=== PATIENT | female | born 1990 | race Caucasian/White ===

== ENCOUNTER 2016-04-27 20:21 | Emergency (ER) | payer SELFPAY ==
[2016-04-27 21:02] VITALS: RESP 18
--- NOTE | 2016-04-27 22:08 | ED ---
General Adult HPI - General Chief complaint: Abdominal Pain Stated complaint: lower abdominal pain/13 wks preg Time Seen by Provider: 04/27/16 21:41 Source: patient, RN notes reviewed, old records reviewed Mode of arrival: ambulatory Limitations: no limitations - History of Present Illness Initial comments: This is a 25-year-old female here for evaluation of bowel pain, abdominal cramping. Patient states she is about 13 weeks . Patient has no vaginal bleeding or vaginal symptoms, patient states she also blood type and she is O+. Patient has no dysuria, patient is reported cramping. At this time patient states that she recently did have ultrasound proven positive IUP this was in [place] she has no access to his records. Patient is a G for P1 with 2 miscarriages 1 vaginal delivery at full-term. Patient states in her prior she had no prior pain like this. No modifying factors for pain at home. No fevers, no nausea vomiting or diarrhea - Related Data Home Medications Medication Instructions Recorded Confirmed Pnv with Ca,No.72/Iron/FA 1 tab PO DAILY 04/27/16 04/27/16 [ Plus Tablet] Allergies Allergy/AdvReac Type Severity Reaction Status Date / Time No Known Allergies Allergy Verified 04/27/16 21:34 Review of Systems ROS Statement: Those systems with pertinent positive or pertinent negative responses have been documented in the HPI. ROS Other: All systems not noted in ROS Statement are negative. Past Medical History Past Medical History: Thyroid Disorder History of Any Multi-Drug Resistant Organisms: None Reported Past Surgical History: No Surgical Hx Reported Past Anesthesia/Blood Transfusion Reactions: No Reported Reaction Past Psychological History: Anxiety, Depression Smoking Status: Former smoker Past Alcohol Use History: None Reported Past Drug Use History: None Reported - Past Family History Father Family Medical History: Coronary Artery Disease (CAD) General Exam Limitations: no limitations General appearance: alert, in no apparent distress Head exam: Present: atraumatic, normocephalic, normal inspection Eye exam: Present: normal appearance, PERRL, EOMI. Absent: scleral icterus, conjunctival injection, periorbital swelling ENT exam: Present: normal exam, mucous membranes moist Neck exam: Present: normal inspection. Absent: tenderness, meningismus, lymphadenopathy Respiratory exam: Present: normal lung sounds bilaterally. Absent: respiratory distress, wheezes, rales, rhonchi, stridor Cardiovascular Exam: Present: regular rate, normal rhythm, normal heart sounds. Absent: systolic murmur, diastolic murmur, rubs, gallop, clicks GI/Abdominal exam: Present: soft, normal bowel sounds. Absent: distended, tenderness, guarding, rebound, rigid Extremities exam: Present: normal inspection, full ROM, normal capillary refill. Absent: tenderness, pedal edema, joint swelling, calf tenderness Back exam: Present: normal inspection Neurological exam: Present: alert, oriented X3, CN II-XII intact Psychiatric exam: Present: normal affect, normal mood Skin exam: Present: warm, dry, intact, normal color. Absent: rash Course Vital Signs 04/27/16 20:58 Temperature 98.6 F Pulse Rate 63 Respiratory 18 Rate Blood Pressure 109/60 O2 Sat by Pulse 99 Oximetry Medical Decision Making - Lab Data Lab Results 04/27/16 Range/Units 22:15 Urine Color Yellow Urine Appearance Clear (Clear) Urine pH 6.0 (5.0-8.0) Ur Specific [place] 1.016 (1.001-1.035) Urine Protein Negative (Negative) Urine Glucose (UA) Negative (Negative) Urine Ketones Trace H (Negative) Urine Blood Negative (Negative) Urine Nitrite Negative (Negative) Urine Bilirubin Negative (Negative) Urine Urobilinogen <2.0 (<2.0) mg/dL Ur Leukocyte Esterase Small H (Negative) Urine RBC 3 (0-5) /hpf Urine WBC 3 (0-5) /hpf Ur Squamous Epith Cells 2 (0-4) /hpf Urine Bacteria Rare H (None) /hpf Urine Mucus Rare H (None) /hpf Disposition Clinical Impression: Abdominal pain affecting Disposition: HOME SELF-CARE Condition: Good Instructions: Abdominal Pain in (ED) Referrals: None,Stated [Primary Care Provider] - 1-2 days
[2016-04-27 22:35] LABS: Appearance,Urine Clear (Clear); Bacteria,Urine Rare /hpf; Bilirubin,Urine Negative (Negative); Glucose,Urine (UA) Negative (Negative); Ketones,Urine Trace (Negative); Leukocyte Esterase,Urine Small (Negative); Mucus,Urine Rare /hpf; Nitrite,Urine Negative (Negative); Particle Count 4310; Protein,Urine Negative (Negative); RBC,Urine 3 /hpf (0-5); Specific Gravity,Urine 1.016 (1.001-1.035); Squamous Epithelial Cell,Urine 2 /hpf (0-4); UA Billing (MACRO vs. MICRO) MICRO; Urobilinogen,Urine <2.0 mg/dL (<2.0); WBC,Urine 3 /hpf (0-5)
--- NOTE | 2016-04-27 22:51 | US ---
EXAMINATION TYPE: US OB <= 14 wk fetus DATE OF EXAM: 04/27/2016 10:26 PM COMPARISON: NONE CLINICAL HISTORY: Pain. EXAM PERFORMED: Transabdominal (TA) EXAM MEASUREMENTS: GESTATIONAL AGE / DATING Physician Established: Not established Dates by LMP: (13 weeks/5 days) EDC: 10/28/2016 Dates by First Scan: No previous Dates by Current Scan for: (12 weeks/5 days) EDC: 11/04/2016 MATERNAL ANATOMY Uterus: 13.3 x 10.2 x 9.8 cm Right Ovary: 3.5 x 2.2 x 2.2 cm Left Ovary: 3.5 x 2.0 x 2.0 cm Post CDS / Adnexa: wnl Presence of free fluid: No Presence of corpus luteal cyst: No Presence of subchorionic bleed: No GESTATION / SURVEY CRL: 6.35 cm (12 weeks/5 days) Heart Rate: 155 bpm Rhythm: Normal IUP: Viable IUP Nuchal Translucency 10-14wks (normal less than 3mm): 1 mm Date of LMP: 01/22/2016- patient is unsure of this date Beta HcG (if available): Not available at time of exam TECHNOLOGIST IMPRESSION: Viable IUP with an LUIS ENRIQUE of 11/04/2016 IMPRESSION: Ultrasound gestational age is 12 weeks 5 days. I see no complicating process.
[2016-04-27 23:24] VITALS: BP 111/76; PULSE 69; TEMP 98.4
== END 2016-04-27 23:24 | disposition home or self-care (01) ==
LOC: EC 20:21
DX: O26.891 Other specified pregnancy related conditions, first trimester (principal); R10.30 Lower abdominal pain, unspecified; Z87.891 Personal history of nicotine dependence; Z79.899 Other long term (current) drug therapy; Z3A.13 13 weeks gestation of pregnancy
CPT/HCPCS: 76801; 76813; 81001; 87086; 99284

== ENCOUNTER → 2016-08-19 | Outpatient (CLI) | payer OTHER ==
[2016-08-19 16:37] LABS: CH 24.6; CHCM 31.1; HCT 32.6 % (34.0-46.0); HDW 3.56; HGB 10.6 gm/dL (11.4-16.0); Hypochromasia Marked; MCH 25.8 pg (25.0-35.0); MCHC 32.4 g/dL (31.0-37.0); MCV 79.5 fL (80.0-100.0); Mean Platelet Volume 8.8; Poikilocytosis Slight; RDW 14.8 % (11.5-15.5); WBC 9.3 k/uL (3.8-10.6)
[2016-08-19 16:40] LABS: Glucose 85 mg/dL (74-99); Non-African American GFR(MDRD) >60 (>60 ml/min/1.73 sqM)
[2016-08-19 17:12] LABS: Hepatitis B Surface Ag Index 0.05
[2016-08-20 00:59] LABS: Treponemal Ab Non-Reactive (Non-Reactive)
== END ==
LOC: LABWHC1 14:59
PROVIDERS: ATTEND Obstetrics & Gynecology
DX: O26.813 Pregnancy related exhaustion and fatigue, third trimester (principal); Z3A.00 Weeks of gestation of pregnancy not specified
CPT/HCPCS: 36415; 82565; 82947; 82950; 85027; 86762; 86780; 86850; 86900; 86901; 87340; 87390

== ENCOUNTER 2016-10-30 18:01 | Inpatient (IN) | payer OTHER ==
[2016-10-30] MEDS ORDERED: LIDOCAINE 1% (PF) 10 MG/ML (30 ML SDV) SQ PRN (23:00)
[2016-10-30] MEDS ORDERED: CARBOPROST TROMETHAMINE 250 MCG/ML 1 ML AMP IM PRN (23:00)
[2016-10-30] MEDS ORDERED: TERBUTALINE 1 MG/ML VIAL SQ PRN (23:00)
[2016-10-30] MEDS ORDERED: METHYLERGONOVINE 0.2 MG/ML 1 ML AMP IM PRN (23:00)
[2016-10-30] MEDS ORDERED: LACTATED RINGERS 1,000 ML IV SCH (23:00)
[2016-10-30] MEDS ORDERED: OXYTOCIN 10 UNIT/ML 1 ML VIAL IM PRN (23:00)
[2016-10-30] MEDS: LACTATED RINGERS 1,000 ML IV SCH (23:15)
[2016-10-30 23:23] VITALS: BMI 32.9
[2016-10-30 23:29] LABS: Anisocytosis Slight; Basophils # (A) 0.1 k/uL (0-0.2); Basophils % (A) 1 %; CH 21.6; CHCM 29.1; Eosinophils # (A) 0.1 k/uL (0-0.7); Eosinophils % (A) 1 %; HCT 32.8 % (34.0-46.0); HDW 4.01; HGB 9.8 gm/dL (11.4-16.0); Hypochromasia Marked; Luc % (Auto) 3; Lymphocytes # (A) 3.2 k/uL (1.0-4.8); Lymphocytes % (A) 34 %; MCH 22.2 pg (25.0-35.0); MCHC 29.8 g/dL (31.0-37.0); MCV 74.6 fL (80.0-100.0); Mean Platelet Volume 8.6; Microcytosis Moderate; Monocytes # (A) 0.4 k/uL (0-1.0); Monocytes % (A) 4 %; Neutrophils # (A) 5.6 k/uL (1.3-7.7); Neutrophils % (A) 58 %; Poikilocytosis Moderate; RDW 18.6 % (11.5-15.5); WBC 9.6 k/uL (3.8-10.6); WBC (Perox) 10.33
[2016-10-31] MEDS: LACTATED RINGERS 1,000 ML IV SCH (04:08)
[2016-10-31] MEDS: OXYTOCIN 20 UNITS/1000 ML NS 1,000 ML IV SCH ×2 (05:15→06:39)
[2016-10-31] MEDS ORDERED: LANOLIN CREAM 5 GM TUBE TOPICAL PRN (05:20)
[2016-10-31] MEDS ORDERED: HYDROCORTISONE 2.5% RECTAL CREAM 30 GM TUBE RECTAL PRN (05:20)
[2016-10-31] MEDS ORDERED: WITCH HAZEL 1 EACH MED..PAD TOPICAL PRN (05:20)
[2016-10-31] MEDS ORDERED: diphenhydrAMINE 50 MG/ML 1 ML VIAL IVP PRN ×2 (05:20)
[2016-10-31] MEDS ORDERED: ZOLPIDEM 5 MG TAB PO PRN (05:20)
[2016-10-31] MEDS ORDERED: SIMETHICONE 80 MG CHEWABLE PO PRN (05:20)
[2016-10-31] MEDS ORDERED: diphenhydrAMINE 50 MG CAP PO PRN (05:20)
[2016-10-31] MEDS ORDERED: BENZOCAINE/MENTHOL SPRAY 1 GM/SPRAY AEROSOL TOPICAL PRN (05:20)
[2016-10-31] MEDS ORDERED: diphenhydrAMINE 25 MG CAP PO PRN (05:20)
[2016-10-31] MEDS ORDERED: ACETAMINOPHEN TAB 325 MG TAB PO PRN (05:20)
--- NOTE | 2016-10-31 05:24 | P.HPOB ---
History of Present Illness H&P Date: 10/31/16 Chief Complaint: Intrauterine at term: Active labor Clementine is a 26-year-old at 39 weeks gestation who arrives complaining of contractions. She made cervical change during her initial hour to 2 hours of observation from 3 cm to 5 cm and is admitted for labor. Her correct contractions approximately every 3 minutes and other than the contractions she voices no complaints this time. She was late to initiate her care but otherwise did not have any significant problems with the . Her pertinent labs did include O+ blood type Rh and it was negative, rubella immune , hepatitis B surface antigen and RPR as well as groupie strep were negative. Artificial rupture membranes was performed and clear fluid is noted. On physical exam vital signs are stable and afebrile. Heart regular, lungs clear, extremities without pain. Osteopathic and unremarkable. Gravid uterus is otherwise noted and heart tones are in the 140s and reactive. Assessment intrauterine at term. Plan expect spontaneous vaginal delivery. Past Medical History Past Medical History: Thyroid Disorder History of Any Multi-Drug Resistant Organisms: None Reported Past Surgical History: No Surgical Hx Reported Past Anesthesia/Blood Transfusion Reactions: No Reported Reaction Past Psychological History: Anxiety, Depression Smoking Status: Never smoker Past Alcohol Use History: None Reported Past Drug Use History: None Reported - Past Family History Father Family Medical History: Coronary Artery Disease (CAD) Medications and Allergies Allergies Allergy/AdvReac Type Severity Reaction Status Date / Time No Known Allergies Allergy Verified 04/27/16 21:34 Exam Osteopathic Statement: *. No significant issues noted on an osteopathic structural exam other than those noted in the History and Physical/Consult. - Vital Signs Vital signs: Vital Signs Temp Pulse Resp BP Pulse Ox 10/30/16 22:41 96.7 F L 73 18 121/73 10/30/16 18:40 98.0 F 70 18 127/71 98 10/30/16 18:05 98.0 F 70 18 127/71 98 Intake and Output 10/30/16 10/30/16 10/31/16 14:59 22:59 06:59 Intake Total 1000 Output Total 100 Balance 900 Intake: IV 1000 Lactated Ringers 1,000 ml 1000 @ 125 mls/hr IV .Q8H HITESH Rx#:[id number] Output: Urine 100 Other: # Voids 1 Weight 92.533 kg Patient Weight 10/31/16 06:59 Weight 92.533 kg Results Result Diagrams: 10/30/16 23:10 Abnormal Lab Results - Last 24 Hours (Table) 10/30/16 Range/Units 23:10 Hgb 9.8 L (11.4-16.0) gm/dL Hct 32.8 L (34.0-46.0) % MCV 74.6 L (80.0-100.0) fL MCH 22.2 L (25.0-35.0) pg MCHC 29.8 L (31.0-37.0) g/dL RDW 18.6 H (11.5-15.5) % Plt Count 130 L (150-450) k/uL
--- NOTE | 2016-10-31 05:25 | P.PROBDLV ---
Vaginal Delivery Note - . Vaginal Delivery Note: Patient progressed complete and pushed with spontaneous vaginal delivery of a viable male over a first repair perineal laceration. Falling deliver the head anterior posterior shoulders were delivered gentle downward upper traction followed by the remainder the baby. Mouth nares were then bulb suctioned and baby was placed on mother's abdomen where the umbilical cord was allowed to pulsate 30 seconds prior to clamping and cutting. Once this was accomplished nursery personnel was present to assume care placenta was delivered intact. Pitocin was then added to the IV. A first-degree perineal laceration was then noted and repaired with 3-0 Vicryl. Both mother and baby are stable following delivery. scores were 8 at one and 9 at 5 minutes respectively and the weight was 7 lbs. 13 oz.
[2016-10-31] MEDS: IBUPROFEN 600 MG TAB PO PRN ×2 (08:22→16:04)
[2016-10-31] MEDS: SENNOSIDES-DOCUSATE SODIUM 1 EACH TAB PO SCH ×2 (08:36→19:12)
[2016-10-31] MEDS: Acetaminophen-Codeine 300-30mg TAB PO PRN ×2 (12:31→19:12)
[2016-11-01] MEDS: IBUPROFEN 600 MG TAB PO PRN ×2 (02:03→14:26)
[2016-11-01] MEDS: SENNOSIDES-DOCUSATE SODIUM 1 EACH TAB PO SCH ×2 (07:59→20:45)
[2016-11-01] MEDS: Acetaminophen-Codeine 300-30mg TAB PO PRN ×2 (07:59→20:44)
--- NOTE | 2016-11-01 08:00 | P.DS ---
Providers Date of admission: 10/30/16 22:36 Expected date of discharge: 11/01/16 Attending physician: Jayden Mcclelland Primary care physician: Stated None Hospital Course: Trinidad is doing very well day 1. She is involuting, voiding, and she is tolerating her diet. She voices no complaints and requests discharged home today. Vital signs are stable and afebrile. Heart regular, lungs clear, extremities without pain. Abdomen soft uterus is firm lochia is reported be light. Assessment day 1. Plan discharged home follow up with me in 6 weeks. A prescription for Motrin has been sent to her pharmacy. All other questions are answered for her at this time. Patient Condition at Discharge: Good Plan - Discharge Summary New Discharge Prescriptions: New Ibuprofen [Motrin] 600 mg PO Q6HR PRN #30 tab PRN Reason: Pain Discharge Medication List Ibuprofen [Motrin] 600 mg PO Q6HR PRN #30 tab 11/01/16 [Rx] Follow up Appointment(s)/Referral(s): Jayden Mcclelland DO [Doctor of Osteopathic Medicine] - 6 Weeks Activity/Diet/Wound Care/Special Instructions: No heavy lifting, limit stairs and driving, and pelvic rest. If any high temperatures, heavy bleeding, or severe pain call my office Discharge Disposition: HOME SELF-CARE
[2016-11-01 12:29] VITALS: RESP 16
[2016-11-02] MEDS: Acetaminophen-Codeine 300-30mg TAB PO PRN (07:27)
[2016-11-02 08:12] VITALS: BP 104/66; PULSE 81; TEMP 98.6
--- NOTE | 2016-11-02 08:17 | P.DS ---
Providers Date of admission: 10/30/16 22:36 Expected date of discharge: 11/02/16 Attending physician: Jayden Mcclelland Primary care physician: Stated None Hospital Course: Trinidad was discharged yesterday but did not go home due to baby not being she is seen and evaluated again today with no changes to her status and will be discharged home today. Patient Condition at Discharge: Good Plan - Discharge Summary New Discharge Prescriptions: New Ibuprofen [Motrin] 600 mg PO Q6HR PRN #30 tab PRN Reason: Pain Discharge Medication List Ibuprofen [Motrin] 600 mg PO Q6HR PRN #30 tab 11/01/16 [Rx] Follow up Appointment(s)/Referral(s): Jayden Mcclelland DO [Doctor of Osteopathic Medicine] - 6 Weeks Patient Instructions/Handouts: Vaginal Delivery (DC) Activity/Diet/Wound Care/Special Instructions: No heavy lifting, limit stairs and driving, and pelvic rest. If any high temperatures, heavy bleeding, or severe pain call my office Discharge Disposition: HOME SELF-CARE
[2016-11-02] MEDS: SENNOSIDES-DOCUSATE SODIUM 1 EACH TAB PO SCH (11:57)
== END 2016-11-02 11:00 | disposition home or self-care (01) | DRG 775 ==
LOC: FBPOP 18:01 → 4FBP 22:36
PROVIDERS: ADMIT Obstetrics & Gynecology; ATTEND Obstetrics & Gynecology
PROC: 10E0XZZ Delivery of Products of Conception, External Approach (ICD-10-PCS; principal; 2016-10-31)
PROC: 0HQ9XZZ Repair Perineum Skin, External Approach (ICD-10-PCS; 2016-10-31)
DX: O70.0 First degree perineal laceration during delivery (principal); Z37.0 Single live birth; Z3A.39 39 weeks gestation of pregnancy; Z86.39 Personal history of other endocrine, nutritional and metabolic disease; Z86.59 Personal history of other mental and behavioral disorders
CPT/HCPCS: 59025; 85025; 88307; 99213

== ENCOUNTER 2017-01-26 17:44 | Emergency (ER) | payer OTHER ==
--- NOTE | 2017-01-26 19:02 | ED ---
Abdominal Pain HPI - General Chief Complaint: Abdominal Pain Stated Complaint: Abdominal pain Time Seen by Provider: 01/26/17 18:39 Source: patient, RN notes reviewed, old records reviewed Mode of arrival: ambulatory Limitations: no limitations - History of Present Illness Initial Comments: Patient is a 26-year-old female presents today with one day of red red blood after having a bowel movement. Just as concerned because she's had a protrusion in her abdomen since she gave to her child approximately a year ago. They sure importance that whenever she sits forward she notices that her abdomen protrudes out word. She denies any fever chills. She denies any changes in her bowel habits. She denies any history of hemorroids. She denies vomiting, pain with bowel movement, nausea, abdominal pain. - Related Data Previous Rx's Medication Instructions Recorded Polyethylene Glycol 3350 [Miralax] 17 gm PO DAILY #255 gm 01/26/17 Allergies Allergy/AdvReac Type Severity Reaction Status Date / Time No Known Allergies Allergy Verified 01/26/17 19:07 Review of Systems ROS Statement: Those systems with pertinent positive or pertinent negative responses have been documented in the HPI. ROS Other: All systems not noted in ROS Statement are negative. Past Medical History Past Medical History: Thyroid Disorder History of Any Multi-Drug Resistant Organisms: None Reported Past Surgical History: No Surgical Hx Reported Past Anesthesia/Blood Transfusion Reactions: No Reported Reaction Past Psychological History: Anxiety, Depression Smoking Status: Current every day smoker Past Alcohol Use History: None Reported Past Drug Use History: None Reported - Past Family History Father Family Medical History: Coronary Artery Disease (CAD) General Exam - General Exam Comments Initial Comments: This is a 26 year old female, no distress Limitations: no limitations General appearance: alert, in no apparent distress Head exam: Present: atraumatic, normocephalic, normal inspection Eye exam: Present: normal appearance, PERRL, EOMI. Absent: scleral icterus, conjunctival injection, periorbital swelling ENT exam: Present: normal exam, mucous membranes moist Neck exam: Present: normal inspection. Absent: tenderness, meningismus, lymphadenopathy Respiratory exam: Present: normal lung sounds bilaterally. Absent: respiratory distress, wheezes, rales, rhonchi, stridor Cardiovascular Exam: Present: regular rate, normal rhythm, normal heart sounds. Absent: systolic murmur, diastolic murmur, rubs, gallop, clicks GI/Abdominal exam: Present: soft, normal bowel sounds, hernia (reducible ventral hernia. ). Absent: distended, tenderness, guarding, rebound, rigid Rectal exam: Present: normal inspection, normal rectal tone, hemorrhoids ( Patient has 3 large external hemorriods. ) Extremities exam: Present: normal inspection, full ROM, normal capillary refill. Absent: tenderness, pedal edema, joint swelling, calf tenderness Back exam: Present: normal inspection Neurological exam: Present: alert, oriented X3, CN II-XII intact Course Vital Signs 01/26/17 01/26/17 18:05 19:08 Temperature 98.9 F 97.5 F L Pulse Rate 74 71 Respiratory 16 18 Rate Blood Pressure 130/72 120/70 O2 Sat by Pulse 100 98 Oximetry Medical Decision Making - Medical Decision Making Patient presents with one day of bloody stool after she wiped after having a bowel movement. She also conplains of a protrusion in her abdomem when she sits forward. Patient has a reducilbe large ventral hernia that was created during her . She has had the hernia since giving . She has normal bowel sounds. Patient also has 3 large hemorroids that are the cause of her bleeding after bowel movement. Disucssed increase fiber, sitz baths. Discussed follow up with surgeon outpatiently for hernia repair if she desires. Discussed monitoring for signs of irreducible hernia. Disposition Clinical Impression: Ventral hernia, Hemorrhoids Disposition: HOME SELF-CARE Condition: Good Instructions: Hemorrhoids (ED), Ventral Hernia (ED) Additional Instructions: Patient has a follow-up with a surgeon in regards to the ventral hernia. Increase fiber intake to help with the hemorrhoids. Patient should return to the emergency department if any alarming signs or symptoms occur. Prescriptions: Polyethylene Glycol 3350 [Miralax] 17 gm PO DAILY #255 gm Referrals: None,Stated [Primary Care Provider] - 1-2 days Jessica Clarke MD [STAFF PHYSICIAN] - 1-2 days Libertad Sanchez MD [STAFF PHYSICIAN] - 1-2 days Time of Disposition: 19:00
[2017-01-26 19:08] VITALS: BP 120/70; PULSE 71; RESP 18; TEMP 97.5
== END 2017-01-26 19:08 | disposition home or self-care (01) ==
LOC: EC 17:44
DX: K43.9 Ventral hernia without obstruction or gangrene (principal); K64.9 Unspecified hemorrhoids; F17.200 Nicotine dependence, unspecified, uncomplicated
CPT/HCPCS: 99284

== ENCOUNTER 2017-09-13 17:19 | Emergency (ER) | payer OTHER ==
[2017-09-13 17:26] VITALS: TEMP 97.6
[2017-09-13] MEDS ORDERED: LORazepam 1 MG TAB PO STA (17:45)
--- NOTE | 2017-09-13 18:34 | ED ---
Chest Pain HPI - General Chief Complaint: Chest Pain Stated Complaint: Panic Attack Time Seen by Provider: 09/13/17 17:30 Source: patient Mode of arrival: EMS Limitations: no limitations - History of Present Illness Initial Comments: Before years old female has a history of anxiety she had argument with her family member that triggered the chest pain and shortness of breath now she still have a mild chest pain but it's a lot better shortness of breath is better as well he does hurt when she takes a deep breath she denies any controls or tobacco use or any history of DVT or PE. Review of system is unremarkable otherwise - Related Data Home Medications Medication Instructions Recorded Confirmed Acetaminophen Tab [Tylenol Tab] 650 mg PO Q6H PRN 09/13/17 09/13/17 Escitalopram [Lexapro] 10 mg PO DAILY 09/13/17 09/13/17 [id number] Acid 1 cap PO DAILY 09/13/17 09/13/17 [-U Capsule (formulary)] Allergies Allergy/AdvReac Type Severity Reaction Status Date / Time No Known Allergies Allergy Verified 09/13/17 19:04 Review of Systems ROS Statement: Those systems with pertinent positive or pertinent negative responses have been documented in the HPI. ROS Other: All systems not noted in ROS Statement are negative. Past Medical History Past Medical History: Thyroid Disorder Additional Past Medical History / Comment(s): panic attacks anemia History of Any Multi-Drug Resistant Organisms: None Reported Past Surgical History: No Surgical Hx Reported Past Anesthesia/Blood Transfusion Reactions: No Reported Reaction Past Psychological History: Anxiety, Depression Smoking Status: Former smoker Past Alcohol Use History: Rare Past Drug Use History: None Reported - Past Family History Father Family Medical History: Coronary Artery Disease (CAD) General Exam - General Exam Comments Initial Comments: General: The patient is awake and alert, in no distress, and does not appear acutely ill. Anxious Skin: Skin is warm and dry and no rashes or lesions are noted. Eye: Pupils are equal, round and reactive to light, extra-ocular movements are intact; there is normal conjunctiva bilaterally. Ears, nose, mouth and throat: There are moist mucous membranes and no oral lesions. Neck: The neck is supple, there is no tenderness or JVD. Cardiovascular: There is a regular rate and rhythm. No murmur, rub or gallop is appreciated. Respiratory: To auscultation bilateral, no wheezing no rhonchi no distress respiratory ahn noticed Gastrointestinal: Soft, non-distended, non-tender abdomen without masses or organomegaly noted. There is no rebound or guarding present. Bowel sounds are unremarkable. Back: There is no tenderness to palpation in the midline. There is no obvious deformity. Musculoskeletal: Normal ROM, no tenderness, There is no pedal edema. There is no calf tenderness or swelling. No cords were appreciated. Neurological: CN II-XII intact, Cranial nerves III through XII are intact. There are no obvious motor or sensory deficits. Coordination appears grossly intact. Speech is normal. Psychiatric: Cooperative, appropriate mood & affect, normal judgment. Limitations: no limitations Course Vital Signs 09/13/17 09/13/17 17:21 19:01 Temperature 97.6 F Pulse Rate 67 68 Respiratory 18 18 Rate Blood Pressure 108/56 109/63 O2 Sat by Pulse 100 98 Oximetry EKG is normal sinus ventricular rate is 60 NV interval is 122 QRS duration is 94 QT/QTc is 428/420 review of this EKG does not reveal any ST elevation or ST depression At term 1900 her labs are reviewed, CBC, d-dimer, troponin, compressive metabolic panel, EKG are unremarkable considering she is 26 and there was a specific trigger for anxiety when she had argument with her family member now she is calm chest pain has gone away and she wants to go home Disposition Clinical Impression: Chest pain, Pleuritic chest pain Disposition: HOME SELF-CARE Condition: Poor Instructions: Chest Pain (ED) Is patient prescribed a controlled substance at d/c from ED?: No Referrals: Shaji Jerome MD [Primary Care Provider] - 1-2 days Bk Laura MD [STAFF PHYSICIAN] - 1-2 days
[2017-09-13 18:46] LABS: Anisocytosis Slight; Basophils # (A) 0.1 k/uL (0-0.2); Basophils % (A) 1 %; Eosinophils # (A) 0.2 k/uL (0-0.7); Eosinophils % (A) 3 %; HCT 34.5 % (34.0-46.0); HGB 10.9 gm/dL (11.4-16.0); Hypochromasia Moderate; Lymphocytes # (A) 2.7 k/uL (1.0-4.8); Lymphocytes % (A) 38 %; MCH 23.8 pg (25.0-35.0); MCHC 31.7 g/dL (31.0-37.0); Mean Platelet Volume 7.1; Microcytosis Moderate; Monocytes # (A) 0.4 k/uL (0-1.0); Monocytes % (A) 6 %; Neutrophils # (A) 3.6 k/uL (1.3-7.7); Neutrophils % (A) 50 %; Platelet Count 189 k/uL (150-450); RBC 4.59 m/uL (3.80-5.40); RDW 17.5 % (11.5-15.5); WBC 7.2 k/uL (3.8-10.6)
--- NOTE | 2017-09-13 18:57 | XR ---
EXAMINATION TYPE: XR chest 2V DATE OF EXAM: 09/13/2017 COMPARISON: NONE HISTORY: Chest pain TECHNIQUE: Frontal and lateral views of the chest are obtained. FINDINGS: Heart and mediastinum are normal. Lungs are clear. Diaphragm is normal. Bony thorax appear s normal. IMPRESSION: Normal chest.
[2017-09-13 19:01] LABS: ALT 30 U/L (9-52); AST 23 U/L (14-36); Albumin 4.4 g/dL (3.5-5.0); Alkaline Phosphatase 60 U/L (38-126); Anion Gap 8 mmol/L; Blood Urea Nitrogen 15 mg/dL (7-17); Calcium 9.9 mg/dL (8.4-10.2); Carbon Dioxide 25 mmol/L (22-30); Chloride 106 mmol/L (98-107); Glucose 83 mg/dL (74-99); Magnesium 1.8 mg/dL (1.6-2.3); Potassium 3.9 mmol/L (3.5-5.1); Sodium 139 mmol/L (137-145); Total Bilirubin <0.1 mg/dL (0.2-1.3); Total Protein 7.4 g/dL (6.3-8.2)
[2017-09-13 19:04] LABS: Creatine Kinase 77 U/L (30-135)
[2017-09-13 19:14] LABS: D-Dimer 0.24 mg/L FEU (<0.60); Partial Thromboplastin Time 24.8 sec (22.0-30.0); Prothrombin Time 9.9 sec (9.0-12.0)
[2017-09-13 19:16] LABS: Creatine Kinase MB 0.5 ng/mL (0.0-2.4); Troponin I <0.012 ng/mL (0.000-0.034)
[2017-09-13 21:18] VITALS: BP 106/61; PULSE 66; RESP 16
== END 2017-09-13 21:17 | disposition home or self-care (01) ==
LOC: EC 17:19
DX: R07.81 Pleurodynia (principal); R06.02 Shortness of breath; F41.0 Panic disorder [episodic paroxysmal anxiety]; F32.9 Major depressive disorder, single episode, unspecified; Z87.891 Personal history of nicotine dependence; Z79.899 Other long term (current) drug therapy; Z82.49 Family history of ischemic heart disease and other diseases of the circulatory system
CPT/HCPCS: 36415; 71046; 80053; 82550; 82553; 83735; 84484; 85025; 85379; 85610; 85730; 93005; 99285

== ENCOUNTER 2017-10-07 10:29 | Emergency (ER) | payer OTHER ==
[2017-10-07 10:45] VITALS: RESP 16
[2017-10-07] MEDS ORDERED: SODIUM CHLORIDE 0.9% 1,000 ML IV STA (11:15)
[2017-10-07] MEDS ORDERED: METOCLOPRAMIDE 5 MG/ML 2 ML VIAL IVP STA (11:15)
[2017-10-07] MEDS ORDERED: diphenhydrAMINE 50 MG/ML 1 ML VIAL IVP STA (11:15)
--- NOTE | 2017-10-07 11:15 | ED ---
General Adult HPI - General Chief complaint: Headache Stated complaint: headache Time Seen by Provider: 10/07/17 10:47 Source: patient, RN notes reviewed Mode of arrival: ambulatory Limitations: no limitations - History of Present Illness Initial comments: Patient 27-year-old female presented to the emergency room today with a chief complaint of a headache that began yesterday. Patient states that she woke up in the morning with headache. Patient does admit to pain right side of the head. Patient does admit to photosensitivity. States he has felt nauseous no vomiting. Patient states not had a headache similar to this in the past. Patient denies any recent fever, chills, shortness of breath, chest pain, back pain, abdominal pain, dysuria or hematuria, constipation or diarrhea, visual changes, or any other complaints. - Related Data Home Medications Medication Instructions Recorded Confirmed Acetaminophen Tab [Tylenol Tab] 650 mg PO Q6H PRN 09/13/17 10/07/17 Escitalopram [Lexapro] 10 mg PO DAILY 09/13/17 10/07/17 [id number] Acid 1 cap PO DAILY 09/13/17 10/07/17 [-U Capsule (formulary)] Previous Rx's Medication Instructions Recorded Fluticasone Propionate [Flonase 1 - 2 spray EA NOSTRIL DAILY 5 10/07/17 Allergy Relief] Days ml Ibuprofen [Motrin] 600 mg PO Q6HR PRN #40 day 10/07/17 Allergies Allergy/AdvReac Type Severity Reaction Status Date / Time No Known Allergies Allergy Verified 10/07/17 10:45 Review of Systems ROS Statement: Those systems with pertinent positive or pertinent negative responses have been documented in the HPI. ROS Other: All systems not noted in ROS Statement are negative. Past Medical History Past Medical History: Thyroid Disorder Additional Past Medical History / Comment(s): panic attacks anemia History of Any Multi-Drug Resistant Organisms: None Reported Past Surgical History: No Surgical Hx Reported Past Anesthesia/Blood Transfusion Reactions: No Reported Reaction Past Psychological History: Anxiety, Depression Smoking Status: Former smoker Past Alcohol Use History: Rare Past Drug Use History: None Reported - Past Family History Father Family Medical History: Coronary Artery Disease (CAD) General Exam - General Exam Comments Initial Comments: General: The patient is awake and alert, in no distress, and does not appear acutely ill. Eye: Pupils are equal, round and reactive to light, extra-ocular movements are intact. No nystagmus. There is normal conjunctiva bilaterally. No signs of icterus. Ears, nose, mouth and throat: There are moist mucous membranes and no oral lesions. Neck: The neck is supple, there is no tenderness or JVD. Cardiovascular: There is a regular rate and rhythm. No murmur, rub or gallop is appreciated. Respiratory: Lungs are clear to auscultation, respirations are non-labored, breath sounds are equal. No wheezes, stridor, rales, or rhonchi. Musculoskeletal: Normal ROM, no tenderness. Strength 5/5. Sensation intact. Pulses equal bilaterally 2+. Neurological: A&O x 3. CN II-XII intact, There are no obvious motor or sensory deficits. Coordination appears grossly intact. Speech is normal. Skin: Skin is warm and dry and no rashes or lesions are noted. Psychiatric: Cooperative, appropriate mood & affect, normal judgment. Limitations: no limitations Course Vital Signs 10/07/17 10/07/17 10:43 13:45 Temperature 98.9 F Pulse Rate 70 65 Respiratory 16 16 Rate Blood Pressure 108/72 104/68 O2 Sat by Pulse 99 98 Oximetry Medical Decision Making - Medical Decision Making CT and CTA are negative for any acute abnormality other than Evidence for sinus disease. Patient is feeling better after Reglan, Benadryl in the emergency room. Patient be discharged home started on anti-inflammatories. Patient given a prescription for Flonase. - Lab Data Result diagrams: 10/07/17 11:35 10/07/17 11:35 Lab Results 10/07/17 10/07/17 10/07/17 Range/Units 11:35 11:35 11:35 WBC 7.7 (3.8-10.6) k/uL RBC 4.90 (3.80-5.40) m/uL Hgb 12.0 (11.4-16.0) gm/dL Hct 38.4 (34.0-46.0) % MCV 78.4 L (80.0-100.0) fL MCH 24.5 L (25.0-35.0) pg MCHC 31.2 (31.0-37.0) g/dL RDW 18.1 H (11.5-15.5) % Plt Count 206 (150-450) k/uL Neutrophils % 57 % Lymphocytes % 34 % Monocytes % 4 % Eosinophils % 2 % Basophils % 1 % Neutrophils # 4.4 (1.3-7.7) k/uL Lymphocytes # 2.6 (1.0-4.8) k/uL Monocytes # 0.3 (0-1.0) k/uL Eosinophils # 0.2 (0-0.7) k/uL Basophils # 0.0 (0-0.2) k/uL Hypochromasia Moderate Anisocytosis Slight Microcytosis Slight Sodium 140 (137-145) mmol/L Potassium 3.9 (3.5-5.1) mmol/L Chloride 104 (98-107) mmol/L Carbon Dioxide 27 (22-30) mmol/L Anion Gap 9 mmol/L BUN 14 (7-17) mg/dL Creatinine 0.70 (0.52-1.04) mg/dL Est GFR (CKD-EPI)AfAm >90 (>60 ml/min/1.73 sqM) Est GFR (CKD-EPI)NonAf >90 (>60 ml/min/1.73 sqM) Glucose 93 (74-99) mg/dL Calcium 9.7 (8.4-10.2) mg/dL Total Bilirubin 0.3 (0.2-1.3) mg/dL AST 28 (14-36) U/L ALT 41 (9-52) U/L Alkaline Phosphatase 67 (38-126) U/L Total Protein 8.2 (6.3-8.2) g/dL Albumin 4.5 (3.5-5.0) g/dL Urine Color Urine Appearance (Clear) Urine pH (5.0-8.0) Ur Specific [place] (1.001-1.035) Urine Protein (Negative) Urine Glucose (UA) (Negative) Urine Ketones (Negative) Urine Blood (Negative) Urine Nitrite (Negative) Urine Bilirubin (Negative) Urine Urobilinogen (<2.0) mg/dL Ur Leukocyte Esterase (Negative) Urine HCG, Qual Not Detected (Not Detectd) 10/07/17 Range/Units 11:35 WBC (3.8-10.6) k/uL RBC (3.80-5.40) m/uL Hgb (11.4-16.0) gm/dL Hct (34.0-46.0) % MCV (80.0-100.0) fL MCH (25.0-35.0) pg MCHC (31.0-37.0) g/dL RDW (11.5-15.5) % Plt Count (150-450) k/uL Neutrophils % % Lymphocytes % % Monocytes % % Eosinophils % % Basophils % % Neutrophils # (1.3-7.7) k/uL Lymphocytes # (1.0-4.8) k/uL Monocytes # (0-1.0) k/uL Eosinophils # (0-0.7) k/uL Basophils # (0-0.2) k/uL Hypochromasia Anisocytosis Microcytosis Sodium (137-145) mmol/L Potassium (3.5-5.1) mmol/L Chloride (98-107) mmol/L Carbon Dioxide (22-30) mmol/L Anion Gap mmol/L BUN (7-17) mg/dL Creatinine (0.52-1.04) mg/dL Est GFR (CKD-EPI)AfAm (>60 ml/min/1.73 sqM) Est GFR (CKD-EPI)NonAf (>60 ml/min/1.73 sqM) Glucose (74-99) mg/dL Calcium (8.4-10.2) mg/dL Total Bilirubin (0.2-1.3) mg/dL AST (14-36) U/L ALT (9-52) U/L Alkaline Phosphatase (38-126) U/L Total Protein (6.3-8.2) g/dL Albumin (3.5-5.0) g/dL Urine Color Light Yellow Urine Appearance Clear (Clear) Urine pH 6.0 (5.0-8.0) Ur Specific [place] 1.009 (1.001-1.035) Urine Protein Negative (Negative) Urine Glucose (UA) Negative (Negative) Urine Ketones Negative (Negative) Urine Blood Negative (Negative) Urine Nitrite Negative (Negative) Urine Bilirubin Negative (Negative) Urine Urobilinogen <2.0 (<2.0) mg/dL Ur Leukocyte Esterase Negative (Negative) Urine HCG, Qual (Not Detectd) Disposition Clinical Impression: Headache Disposition: HOME SELF-CARE Condition: Good Instructions: Acute Headache (ED) Additional Instructions: Please use medication as discussed. Please follow-up with family doctor in the next 2 days of symptoms have not improved. Please return to emergency room if the symptoms increase or worsen or for any other concerns. Prescriptions: Fluticasone Propionate [Flonase Allergy Relief] 1 - 2 spray EA NOSTRIL DAILY 5 Days ml Ibuprofen [Motrin] 600 mg PO Q6HR PRN #40 day PRN Reason: Pain Is patient prescribed a controlled substance at d/c from ED?: No Referrals: Shaji Jerome MD [Primary Care Provider] - 1-2 days Time of Disposition: 14:20
[2017-10-07 11:51] LABS: Anisocytosis Slight; Basophils % (A) 1 %; Eosinophils # (A) 0.2 k/uL (0-0.7); Eosinophils % (A) 2 %; HCT 38.4 % (34.0-46.0); Hypochromasia Moderate; Lymphocytes # (A) 2.6 k/uL (1.0-4.8); Lymphocytes % (A) 34 %; MCH 24.5 pg (25.0-35.0); MCHC 31.2 g/dL (31.0-37.0); MCV 78.4 fL (80.0-100.0); Mean Platelet Volume 9.3; Microcytosis Slight; Monocytes # (A) 0.3 k/uL (0-1.0); Monocytes % (A) 4 %; Neutrophils # (A) 4.4 k/uL (1.3-7.7); Neutrophils % (A) 57 %; Platelet Count 206 k/uL (150-450); RDW 18.1 % (11.5-15.5); WBC 7.7 k/uL (3.8-10.6)
[2017-10-07 12:01] LABS: ALT 41 U/L (9-52); AST 28 U/L (14-36); Albumin 4.5 g/dL (3.5-5.0); Alkaline Phosphatase 67 U/L (38-126); Anion Gap 9 mmol/L; Blood Urea Nitrogen 14 mg/dL (7-17); Calcium 9.7 mg/dL (8.4-10.2); Carbon Dioxide 27 mmol/L (22-30); Chloride 104 mmol/L (98-107); Glucose 93 mg/dL (74-99); Potassium 3.9 mmol/L (3.5-5.1); Sodium 140 mmol/L (137-145); Total Bilirubin 0.3 mg/dL (0.2-1.3); Total Protein 8.2 g/dL (6.3-8.2)
[2017-10-07 12:05] LABS: Appearance,Urine Clear (Clear); Bilirubin,Urine Negative (Negative); Blood,Urine Negative (Negative); Color,Urine Light Yellow; Glucose,Urine (UA) Negative (Negative); Ketones,Urine Negative (Negative); Leukocyte Esterase,Urine Negative (Negative); Nitrite,Urine Negative (Negative); Protein,Urine Negative (Negative); Specific Gravity,Urine 1.009 (1.001-1.035); Urobilinogen,Urine <2.0 mg/dL (<2.0)
--- NOTE | 2017-10-07 13:13 | CT ---
EXAMINATION TYPE: CT brain wo con DATE OF EXAM: 10/07/2017 COMPARISON: None HISTORY: 27-year-old female Headache TECHNIQUE: Examination was done in axial plane without intravenous contrast. Coronal and sagittal r econstructions performed. CT DLP: 1117.27 mGycm Automated exposure control for dose reduction was used. FINDINGS: There is no evidence of acute intracranial hemorrhage, acute ischemic changes, mass, mass-effect, or extra-axial fluid collection. There is no effacement of cerebral sulci or basal subarachnoid cister ns. There is no hydrocephalus. There is no midline shift. Suazo-white matter distinction is preserv ed. Moderate mucosal thickening left ethmoid air cells and moderate to severe in the frontal sinuses. Tra ce mucosal thickening right maxillary sinus. Orbits and globes are intact. Mastoid air cells well pne umatized. IMPRESSION: No acute intracranial abnormality seen. 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
--- NOTE | 2017-10-07 13:39 | CT ---
EXAMINATION TYPE: CT angio head neck DATE OF EXAM: 10/07/2017 COMPARISON: CT brain same day HISTORY: 27-year-old female with pain, Headache TECHNIQUE: Contiguous axial scanning of the head and neck performed without and with IV Contrast, pat ient injected with mL of Isovue 370. Coronal/sagittal MIP reconstructions performed. CT DLP: 662.99 mGycm Automated exposure control for dose reduction was used. FINDINGS: Head: No significant stenosis, or arterial occlusion, or aneurysmal changes seen. NECK: No significant stenosis of the common or internal carotid arteries. Vertebral arteries are codominant and patent. There is conventional arch vessel branching anatomy. Normal course and contour of the ne ck arterial vasculature. IMPRESSION: UNREMARKABLE CT ANGIOGRAPHY OF THE HEAD AND NECK.
[2017-10-07 13:46] VITALS: BP 104/68; PULSE 65
[2017-10-07 14:34] VITALS: TEMP 98
== END 2017-10-07 14:33 | disposition home or self-care (01) ==
LOC: EC 10:29
DX: R51 Headache (principal); R11.0 Nausea; F41.9 Anxiety disorder, unspecified; F32.9 Major depressive disorder, single episode, unspecified; Z87.891 Personal history of nicotine dependence
CPT/HCPCS: 36415; 80053; 85025; 81003; 81025; 70496; 70450; 70498; 99284; 96374; 96375; 96361 ×2; J1200; J2765; Q9967

== ENCOUNTER 2017-11-06 15:55 | Emergency (ER) | payer OTHER ==
[2017-11-06 16:17] VITALS: RESP 18
[2017-11-06] MEDS ORDERED: LORazepam 1 MG TAB PO STA (16:57)
--- NOTE | 2017-11-06 17:00 | ED ---
General Adult HPI - General Chief complaint: Anxiety Stated complaint: panic attack Time Seen by Provider: 11/06/17 16:45 Source: patient, RN notes reviewed Mode of arrival: wheelchair Limitations: no limitations - History of Present Illness Initial comments: Patient is a pleasant 27-year-old female presenting to the emergency department with anxiety. Patient states she is felt anxious on and off throughout the day. Patient reportedly was recently discontinued from her doctor. Patient did not find a new doctor yet and has run out of her Lexapro. Last dose was yesterday. Patient denies any suicidal thoughts. Patient is vague with her anxious complaints without other specific complaints. - Related Data Home Medications Medication Instructions Recorded Confirmed Acetaminophen Tab [Tylenol Tab] 650 mg PO Q6H PRN 09/13/17 11/06/17 Escitalopram [Lexapro] 10 mg PO DAILY 09/13/17 11/06/17 Melatonin 4 mg PO HS 11/06/17 11/06/17 Previous Rx's Medication Instructions Recorded Escitalopram [Lexapro] 20 mg PO DAILY #7 tablet 11/06/17 Allergies Allergy/AdvReac Type Severity Reaction Status Date / Time No Known Allergies Allergy Verified 11/06/17 16:42 Review of Systems ROS Statement: Those systems with pertinent positive or pertinent negative responses have been documented in the HPI. ROS Other: All systems not noted in ROS Statement are negative. Constitutional: Denies: fever Eyes: Denies: eye pain ENT: Denies: ear pain Respiratory: Denies: cough Cardiovascular: Denies: chest pain Endocrine: Denies: fatigue Gastrointestinal: Denies: abdominal pain Genitourinary: Denies: dysuria Musculoskeletal: Denies: back pain Skin: Denies: rash Neurological: Denies: confusion Psychiatric: Reports: anxiety. Denies: suicidal thoughts Past Medical History Past Medical History: Thyroid Disorder Additional Past Medical History / Comment(s): panic attacks anemia History of Any Multi-Drug Resistant Organisms: None Reported Past Surgical History: No Surgical Hx Reported Past Anesthesia/Blood Transfusion Reactions: No Reported Reaction Past Psychological History: Anxiety, Depression Smoking Status: Former smoker Past Alcohol Use History: Rare Past Drug Use History: None Reported - Past Family History Father Family Medical History: Coronary Artery Disease (CAD) General Exam Limitations: no limitations General appearance: alert, in no apparent distress Head exam: Present: atraumatic Eye exam: Present: normal appearance, PERRL ENT exam: Present: normal oropharynx Respiratory exam: Present: normal lung sounds bilaterally Cardiovascular Exam: Present: regular rate, normal rhythm GI/Abdominal exam: Present: soft. Absent: tenderness Extremities exam: Present: normal inspection Neurological exam: Present: alert Psychiatric exam: Present: normal affect, normal mood Skin exam: Present: normal color Course Vital Signs 11/06/17 16:16 Temperature 98.5 F Pulse Rate 69 Respiratory 18 Rate Blood Pressure 109/76 O2 Sat by Pulse 98 Oximetry Medical Decision Making - Medical Decision Making Patient states she is on Lexapro 20 mg daily because her dose was increased. Disposition Clinical Impression: Acute anxiety Disposition: HOME SELF-CARE Condition: Stable Instructions: Generalized Anxiety Disorder (ED) Additional Instructions: Please follow-up with primary care physician in the next couple of days for recheck. Return for worsening or change in symptoms, thoughts of self-harm, or other concerns. Prescriptions: Escitalopram [Lexapro] 20 mg PO DAILY #7 tablet Is patient prescribed a controlled substance at d/c from ED?: No Referrals: Shaji Jerome MD [Primary Care Provider] - 1-2 days Jessica Clarke MD [STAFF PHYSICIAN] - 1-2 days Time of Disposition: 17:00
[2017-11-06 17:14] VITALS: BP 129/86; PULSE 70; TEMP 98.7
== END 2017-11-06 17:10 | disposition home or self-care (01) ==
LOC: EC 15:55
DX: F41.0 Panic disorder [episodic paroxysmal anxiety] (principal); F32.9 Major depressive disorder, single episode, unspecified; Z87.891 Personal history of nicotine dependence; Z79.899 Other long term (current) drug therapy
CPT/HCPCS: 99283

== ENCOUNTER 2017-12-07 00:06 | Emergency (ER) | payer OTHER ==
[2017-12-07 00:13] VITALS: BP 120/70; PULSE 58; RESP 16; TEMP 97.9
[2017-12-07] MEDS ORDERED: PENICILLIN VK 500MG STARTER 4 TAB BTL PO STA (00:55)
[2017-12-07] MEDS ORDERED: ACET/COD 300 MG/30 MG STARTER PACK 6 TAB BTL PO STA (00:55)
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
== END 2017-12-07 01:09 | disposition home or self-care (01) ==
LOC: EC 00:06
DX: S02.5XXA Fracture of tooth (traumatic), initial encounter for closed fracture (principal); F32.9 Major depressive disorder, single episode, unspecified; F41.9 Anxiety disorder, unspecified; Z87.891 Personal history of nicotine dependence; Z79.899 Other long term (current) drug therapy; X58.XXXA Exposure to other specified factors, initial encounter
CPT/HCPCS: 99283

== ENCOUNTER 2018-02-22 11:56 | Emergency (ER) | payer OTHER ==
[2018-02-22] MEDS ORDERED: SODIUM CHLORIDE 0.9% 1,000 ML IV STA (12:24)
--- NOTE | 2018-02-22 12:27 | ED ---
General Adult HPI - General Chief complaint: Abdominal Pain Stated complaint: abd pain Time Seen by Provider: 02/22/18 12:05 Source: patient, RN notes reviewed Mode of arrival: EMS Limitations: no limitations - History of Present Illness Initial comments: 27-year-old female presents to the emergency department for a chief complaint of left upper quadrant and epigastric pain 4 hours. Patient states this started when she woke up. Patient describes the pain as a sharp pain that starts in her left upper quadrant and radiates to the epigastric area. She states this sharpness comes and goes. Patient states she is sometimes nauseous when she has the pain. She denies vomiting. Patient denies any hematemesis or melena. She admits to sometimes has a burning pain in the upper abdomen as well as over the past 4 hours. Patient admits she may be but is unsure. She denies any vaginal bleeding. She denies any lower abdominal pain. Patient has no other complaints at this time including shortness of breath, chest pain, vomiting, headache, or visual changes. - Related Data Home Medications Medication Instructions Recorded Confirmed Multivitamins, Thera [Multivitamin 1 tab PO DAILY 02/22/18 02/22/18 (formulary)] Previous Rx's Medication Instructions Recorded Escitalopram [Lexapro] 20 mg PO DAILY #7 tablet 11/06/17 Famotidine [Pepcid] 20 mg PO BID #20 tablet 02/22/18 Allergies Allergy/AdvReac Type Severity Reaction Status Date / Time No Known Allergies Allergy Verified 02/22/18 12:08 Review of Systems ROS Statement: Those systems with pertinent positive or pertinent negative responses have been documented in the HPI. ROS Other: All systems not noted in ROS Statement are negative. Past Medical History Past Medical History: Thyroid Disorder Additional Past Medical History / Comment(s): panic attacks anemia History of Any Multi-Drug Resistant Organisms: None Reported Past Surgical History: No Surgical Hx Reported Past Anesthesia/Blood Transfusion Reactions: No Reported Reaction Past Psychological History: Anxiety, Depression Smoking Status: Former smoker Past Alcohol Use History: Rare Past Drug Use History: None Reported - Past Family History Father Family Medical History: Coronary Artery Disease (CAD) General Exam Limitations: no limitations General appearance: alert, in no apparent distress Head exam: Present: atraumatic, normocephalic, normal inspection Eye exam: Present: normal appearance, PERRL, EOMI. Absent: scleral icterus, conjunctival injection, periorbital swelling ENT exam: Present: normal exam, normal oropharynx, mucous membranes moist, TM's normal bilaterally, normal external ear exam Neck exam: Present: normal inspection, full ROM. Absent: tenderness, meningismus Respiratory exam: Present: normal lung sounds bilaterally. Absent: respiratory distress, wheezes, rales, rhonchi, stridor Cardiovascular Exam: Present: regular rate, normal rhythm, normal heart sounds. Absent: systolic murmur, diastolic murmur, rubs, gallop, clicks GI/Abdominal exam: Present: soft, tenderness (tenderness noted to the LUQ and epigastric area), normal bowel sounds. Absent: distended, guarding (no guarding present to palpation of the abdomen including epigastric and LUQ regions), rebound, rigid Neurological exam: Present: alert, oriented X3, CN II-XII intact Psychiatric exam: Present: normal affect, normal mood Course Vital Signs 02/22/18 02/22/18 11:57 13:13 Temperature 98.8 F Pulse Rate 78 74 Respiratory 16 18 Rate Blood Pressure 121/72 130/74 O2 Sat by Pulse 100 99 Oximetry Medical Decision Making - Medical Decision Making 27-year-old female presents to the emergency department for a chief complaint of left upper quadrant and epigastric pain 4 hours. Started when she woke up. Sharp in nature. Denies any right upper quadrant pain. Patient has minimal tenderness on exam without guarding. CBC and CMP are unremarkable. Urine does not show any evidence of infection. HCG negative. Acute abdominal series shows normal chest and nonobstructive bowel gas pattern. No evidence of pneumoperitoneum. Patient was given GI cocktail, Pepcid and Toradol and is feeling much better. Patient may have gastritis at this time. Patient states she feels ready to go home. Patient will be given a prescription of Pepcid and follow up with primary care in 1-2 days. Discussed returning if she has worsening symptoms or right upper quadrant pain. - Lab Data Result diagrams: 02/22/18 12:08 02/22/18 12:08 Lab Results 02/22/18 02/22/18 02/22/18 Range/Units 12:08 12:08 12:20 WBC 8.0 (3.8-10.6) k/uL RBC 4.56 (3.80-5.40) m/uL Hgb 12.3 (11.4-16.0) gm/dL Hct 38.0 (34.0-46.0) % MCV 83.4 (80.0-100.0) fL MCH 27.0 (25.0-35.0) pg MCHC 32.3 (31.0-37.0) g/dL RDW 16.5 H (11.5-15.5) % Plt Count 181 (150-450) k/uL Neutrophils % 62 % Lymphocytes % 27 % Monocytes % 5 % Eosinophils % 4 % Basophils % 1 % Neutrophils # 5.0 (1.3-7.7) k/uL Lymphocytes # 2.2 (1.0-4.8) k/uL Monocytes # 0.4 (0-1.0) k/uL Eosinophils # 0.3 (0-0.7) k/uL Basophils # 0.0 (0-0.2) k/uL Anisocytosis Slight Sodium 139 (137-145) mmol/L Potassium 4.1 (3.5-5.1) mmol/L Chloride 106 (98-107) mmol/L Carbon Dioxide 25 (22-30) mmol/L Anion Gap 8 mmol/L BUN 14 (7-17) mg/dL Creatinine 0.57 (0.52-1.04) mg/dL Est GFR (CKD-EPI)AfAm >90 (>60 ml/min/1.73 sqM) Est GFR (CKD-EPI)NonAf >90 (>60 ml/min/1.73 sqM) Glucose 97 (74-99) mg/dL Calcium 9.8 (8.4-10.2) mg/dL Total Bilirubin 0.6 (0.2-1.3) mg/dL AST 24 (14-36) U/L ALT 22 (9-52) U/L Alkaline Phosphatase 50 (38-126) U/L Total Protein 7.5 (6.3-8.2) g/dL Albumin 4.4 (3.5-5.0) g/dL Amylase 51 (30-110) U/L Lipase 79 (23-300) U/L Urine Color Urine Appearance (Clear) Urine pH (5.0-8.0) Ur Specific Harold (1.001-1.035) Urine Protein (Negative) Urine Glucose (UA) (Negative) Urine Ketones (Negative) Urine Blood (Negative) Urine Nitrite (Negative) Urine Bilirubin (Negative) Urine Urobilinogen (<2.0) mg/dL Ur Leukocyte Esterase (Negative) Urine HCG, Qual Not Detected (Not Detectd) 02/22/18 Range/Units 12:20 WBC (3.8-10.6) k/uL RBC (3.80-5.40) m/uL Hgb (11.4-16.0) gm/dL Hct (34.0-46.0) % MCV (80.0-100.0) fL MCH (25.0-35.0) pg MCHC (31.0-37.0) g/dL RDW (11.5-15.5) % Plt Count (150-450) k/uL Neutrophils % % Lymphocytes % % Monocytes % % Eosinophils % % Basophils % % Neutrophils # (1.3-7.7) k/uL Lymphocytes # (1.0-4.8) k/uL Monocytes # (0-1.0) k/uL Eosinophils # (0-0.7) k/uL Basophils # (0-0.2) k/uL Anisocytosis Sodium (137-145) mmol/L Potassium (3.5-5.1) mmol/L Chloride (98-107) mmol/L Carbon Dioxide (22-30) mmol/L Anion Gap mmol/L BUN (7-17) mg/dL Creatinine (0.52-1.04) mg/dL Est GFR (CKD-EPI)AfAm (>60 ml/min/1.73 sqM) Est GFR (CKD-EPI)NonAf (>60 ml/min/1.73 sqM) Glucose (74-99) mg/dL Calcium (8.4-10.2) mg/dL Total Bilirubin (0.2-1.3) mg/dL AST (14-36) U/L ALT (9-52) U/L Alkaline Phosphatase (38-126) U/L Total Protein (6.3-8.2) g/dL Albumin (3.5-5.0) g/dL Amylase (30-110) U/L Lipase (23-300) U/L Urine Color Yellow Urine Appearance Clear (Clear) Urine pH 7.5 (5.0-8.0) Ur Specific Harold 1.012 (1.001-1.035) Urine Protein Negative (Negative) Urine Glucose (UA) Negative (Negative) Urine Ketones Negative (Negative) Urine Blood Negative (Negative) Urine Nitrite Negative (Negative) Urine Bilirubin Negative (Negative) Urine Urobilinogen <2.0 (<2.0) mg/dL Ur Leukocyte Esterase Negative (Negative) Urine HCG, Qual (Not Detectd) Disposition Clinical Impression: Abdominal pain Disposition: HOME SELF-CARE Condition: Good Instructions: Abdominal Pain (ED) Additional Instructions: Please take Pepcid as directed. Please follow-up with primary care in 1-2 days. Return to the emergency department if you have any worsening symptoms. Prescriptions: Famotidine [Pepcid] 20 mg PO BID #20 tablet Is patient prescribed a controlled substance at d/c from ED?: No Referrals: Joshua French Jr, [Primary Care Provider] - 1-2 days Time of Disposition: 14:07
[2018-02-22 12:36] LABS: Appearance,Urine Clear (Clear); Bilirubin,Urine Negative (Negative); Blood,Urine Negative (Negative); Color,Urine Yellow; Glucose,Urine (UA) Negative (Negative); Ketones,Urine Negative (Negative); Leukocyte Esterase,Urine Negative (Negative); Nitrite,Urine Negative (Negative); PH, Urine 7.5 (5.0-8.0); Protein,Urine Negative (Negative); Specific Gravity,Urine 1.012 (1.001-1.035); Urobilinogen,Urine <2.0 mg/dL (<2.0)
[2018-02-22 12:53] LABS: Anisocytosis Slight; Basophils % (A) 1 %; Eosinophils # (A) 0.3 k/uL (0-0.7); Eosinophils % (A) 4 %; HGB 12.3 gm/dL (11.4-16.0); Lymphocytes # (A) 2.2 k/uL (1.0-4.8); Lymphocytes % (A) 27 %; MCHC 32.3 g/dL (31.0-37.0); MCV 83.4 fL (80.0-100.0); Mean Platelet Volume 8.7; Monocytes # (A) 0.4 k/uL (0-1.0); Monocytes % (A) 5 %; Neutrophils % (A) 62 %; Platelet Count 181 k/uL (150-450); RBC 4.56 m/uL (3.80-5.40); RDW 16.5 % (11.5-15.5)
[2018-02-22] MEDS ORDERED: MAG HYDROX/AL HYDROX/SIMETH 30 ML, HYOSCYAMINE ELIXIR 10 ML, CIMETIDINE HCL 300 MG, LID... PO STA ×4 (12:53)
[2018-02-22] MEDS ORDERED: KETOROLAC 30 MG/ML 1 ML VIAL IVP STA (12:53)
[2018-02-22] MEDS ORDERED: FAMOTIDINE 20 MG/2 ML VIAL IV STA (12:53)
[2018-02-22 13:00] LABS: ALT 22 U/L (9-52); AST 24 U/L (14-36); Albumin 4.4 g/dL (3.5-5.0); Alkaline Phosphatase 50 U/L (38-126); Amylase 51 U/L (30-110); Anion Gap 8 mmol/L; Blood Urea Nitrogen 14 mg/dL (7-17); Calcium 9.8 mg/dL (8.4-10.2); Carbon Dioxide 25 mmol/L (22-30); Chloride 106 mmol/L (98-107); Glucose 97 mg/dL (74-99); Lipase 79 U/L (23-300); Potassium 4.1 mmol/L (3.5-5.1); Sodium 139 mmol/L (137-145); Total Bilirubin 0.6 mg/dL (0.2-1.3); Total Protein 7.5 g/dL (6.3-8.2)
[2018-02-22 13:14] VITALS: RESP 18
--- NOTE | 2018-02-22 13:44 | XR ---
EXAMINATION TYPE: XR abdomen acute w cxr DATE OF EXAM: 02/22/2018 COMPARISON: 09/13/2017 HISTORY: Upper abdominal pain since this morning with chest pain TECHNIQUE: Single frontal chest radiograph, upright abdominal radiograph and supine abdominal radiog raphs were obtained. FINDINGS: No focal consolidation, pleural effusion or pneumothorax is seen within the lungs. Cardia m ediastinal silhouette is within normal limits. Osseous structures appear intact. No dilated large or small bowel. Mild amount of retained colonic stool. Very minimal dextroscoliosis of the upper lumbar spine may relate to patient positioning. Osseous structures are grossly intact. N o suspicious calcifications in the abdomen or pelvis. No evidence of pneumoperitoneum. IMPRESSION: Normal chest radiograph and nonobstructive bowel gas pattern.
[2018-02-22 14:17] VITALS: BP 105/65; PULSE 69; TEMP 97.1
== END 2018-02-22 14:17 | disposition home or self-care (01) ==
LOC: EC 11:56
DX: R10.12 Left upper quadrant pain (principal); R10.13 Epigastric pain; R11.0 Nausea; Z87.891 Personal history of nicotine dependence
CPT/HCPCS: 36415; 80053; 82150; 83690; 85025; 81003; 81025; 74022; 99284; 96374; 96375; 96361; J1885

== ENCOUNTER 2018-02-25 11:20 | Emergency (ER) | payer OTHER ==
[2018-02-25 11:31] VITALS: BP 117/68; PULSE 71; RESP 18; TEMP 98
[2018-02-25] MEDS ORDERED: ESCITALOPRAM 20 MG TAB PO STA (11:44)
--- NOTE | 2018-02-25 11:47 | ED ---
General Adult HPI - General Chief complaint: Psychiatric Symptoms Stated complaint: Panic Attack Time Seen by Provider: 02/25/18 11:29 Source: EMS, RN notes reviewed, old records reviewed Mode of arrival: EMS Limitations: no limitations - History of Present Illness Initial comments: Patient 27-year-old female with significant past medical history for anxiety, presented to the emergency room today with a chief complaint of a panic attack. She does admit that she come to a verbal argument with her boyfriend. She states that she felt like she needed to leave the situation and was becoming more upset so her boyfriend drove her here to the hospital. She does admit that she felt increased anxiety with tightness in her chest. She states is consistent with anxiety and panic attacks that she's had in the past. Patient states that her symptoms have resolved at this time. She is usually takes Lexapro for her anxiety. States she did not take it today. She denies any complaints currently. She states she does plan to go and stay with her mother to stay away from her boyfriend. Patient denies any suicidal, homicidal thoughts or plans. Denies any other complaints. Patient denies any recent fever , chills, shortness of breath, back pain, abdominal pain, nausea or vomiting, numbness or tingling, headaches or visual changes, or any other complaints. - Related Data Home Medications Medication Instructions Recorded Confirmed Multivitamins, Thera [Multivitamin 1 tab PO DAILY 02/22/18 02/25/18 (formulary)] Previous Rx's Medication Instructions Recorded Escitalopram [Lexapro] 20 mg PO DAILY #7 tablet 11/06/17 Allergies Allergy/AdvReac Type Severity Reaction Status Date / Time No Known Allergies Allergy Verified 02/25/18 11:37 Review of Systems ROS Statement: Those systems with pertinent positive or pertinent negative responses have been documented in the HPI. ROS Other: All systems not noted in ROS Statement are negative. Past Medical History Past Medical History: Thyroid Disorder Additional Past Medical History / Comment(s): panic attacks anemia History of Any Multi-Drug Resistant Organisms: None Reported Past Surgical History: No Surgical Hx Reported Past Anesthesia/Blood Transfusion Reactions: No Reported Reaction Past Psychological History: Anxiety, Depression Smoking Status: Former smoker Past Alcohol Use History: Occasional Past Drug Use History: None Reported - Past Family History Father Family Medical History: Coronary Artery Disease (CAD) General Exam - General Exam Comments Initial Comments: General: The patient is awake and alert, in no distress, and does not appear acutely ill. Eye: There is normal conjunctiva bilaterally. No signs of icterus. Ears, nose, mouth and throat: There are moist mucous membranes and no oral lesions. Neck: The neck is supple, there is no tenderness or JVD. Cardiovascular: There is a regular rate and rhythm. No murmur, rub or gallop is appreciated. Respiratory: Lungs are clear to auscultation, respirations are non-labored, breath sounds are equal. No wheezes, stridor, rales, or rhonchi. Musculoskeletal: Normal ROM, no tenderness. Neurological: A&O x 3. CN II-XII intact, There are no obvious motor or sensory deficits. Coordination appears grossly intact. Speech is normal. Skin: Skin is warm and dry and no rashes or lesions are noted. Psychiatric: Cooperative, appropriate mood & affect, normal judgment. Limitations: no limitations Course Vital Signs 02/25/18 11:22 Temperature 98 F Pulse Rate 71 Respiratory 18 Rate Blood Pressure 117/68 O2 Sat by Pulse 97 Oximetry Medical Decision Making - Medical Decision Making Patient denies any suicidal, homicidal thoughts or plans. She does admit that her symptoms this morning were consistent with panic attack that she's had in the past. She denies any new symptoms. She states all symptoms have resolved at this time. She states she does plan to go stay with her mother. Patient states she did not take her Lexapro this morning. She be given dose of Lexapro here in emergency room and discharged to follow-up over the next 2 days. Advised return for any other concerns. Disposition Clinical Impression: Acute anxiety Disposition: HOME SELF-CARE Condition: Good Instructions: Anxiety (ED) Additional Instructions: Please use medication as discussed. Please follow-up with family doctor in the next 2 days of symptoms have not improved. Please return to emergency room if the symptoms increase or worsen or for any other concerns. Is patient prescribed a controlled substance at d/c from ED?: No Referrals: Joshua French Jr, DO [Primary Care Provider] - 1-2 days Time of Disposition: 11:47
--- NOTE | 2018-02-25 14:34 | ED ---
General Adult HPI - General Chief complaint: Psychiatric Symptoms Stated complaint: Panic Attack Time Seen by Provider: 02/25/18 11:29 Source: EMS Mode of arrival: EMS Limitations: no limitations - Related Data Home Medications Medication Instructions Recorded Confirmed Multivitamins, Thera [Multivitamin 1 tab PO DAILY 02/22/18 02/25/18 (formulary)] Previous Rx's Medication Instructions Recorded Escitalopram [Lexapro] 20 mg PO DAILY #7 tablet 11/06/17 Allergies Allergy/AdvReac Type Severity Reaction Status Date / Time No Known Allergies Allergy Verified 02/25/18 11:37 Review of Systems ROS Statement: Those systems with pertinent positive or pertinent negative responses have been documented in the HPI. ROS Other: All systems not noted in ROS Statement are negative. Past Medical History Past Medical History: Thyroid Disorder Additional Past Medical History / Comment(s): panic attacks anemia History of Any Multi-Drug Resistant Organisms: None Reported Past Surgical History: No Surgical Hx Reported Past Anesthesia/Blood Transfusion Reactions: No Reported Reaction Past Psychological History: Anxiety, Depression Smoking Status: Former smoker Past Alcohol Use History: Occasional Past Drug Use History: None Reported - Past Family History Father Family Medical History: Coronary Artery Disease (CAD) General Exam Limitations: no limitations Course Vital Signs 02/25/18 11:22 Temperature 98 F Pulse Rate 71 Respiratory 18 Rate Blood Pressure 117/68 O2 Sat by Pulse 97 Oximetry Disposition Clinical Impression: Panic attack Disposition: HOME SELF-CARE Condition: Good Instructions: Anxiety (ED) Additional Instructions: Please use medication as discussed and follow up with the family doctor in the next two days. Is patient prescribed a controlled substance at d/c from ED?: No Referrals: Joshua French Jr, DO [Primary Care Provider] - 1-2 days Time of Disposition: 11:39
== END 2018-02-25 12:11 | disposition home or self-care (01) ==
LOC: EC 11:20
DX: F41.0 Panic disorder [episodic paroxysmal anxiety] (principal); R07.89 Other chest pain; F32.9 Major depressive disorder, single episode, unspecified; Z87.891 Personal history of nicotine dependence
CPT/HCPCS: 99284

== ENCOUNTER → 2018-04-05 | Outpatient (CLI) | payer OTHER ==
[2018-04-05 11:25] LABS: Basophils % (A) 1 %; Eosinophils # (A) 0.2 k/uL (0-0.7); Eosinophils % (A) 4 %; HCT 39.1 % (34.0-46.0); HGB 12.9 gm/dL (11.4-16.0); Lymphocytes # (A) 1.9 k/uL (1.0-4.8); Lymphocytes % (A) 36 %; MCH 28.1 pg (25.0-35.0); MCHC 33.1 g/dL (31.0-37.0); MCV 84.8 fL (80.0-100.0); Mean Platelet Volume 8.3; Monocytes # (A) 0.3 k/uL (0-1.0); Monocytes % (A) 6 %; Neutrophils # (A) 2.7 k/uL (1.3-7.7); Neutrophils % (A) 50 %; Platelet Count 190 k/uL (150-450); RBC 4.61 m/uL (3.80-5.40); RDW 15.2 % (11.5-15.5); WBC 5.3 k/uL (3.8-10.6)
[2018-04-05 17:12] LABS: ALT 27 U/L (8-44); AST 26 U/L (13-35); Albumin/Globulin Ratio 1.83 (1.60-3.17); Alkaline Phosphatase 76 U/L (41-126); Bilirubin, Conjugated <0.20 mg/dL (0.20-0.40); Globulin 2.4 g/dL (1.6-3.3); Total Bilirubin 0.3 mg/dL (0.2-1.2); Total Protein 6.8 g/dL (6.2-8.2)
== END | disposition home or self-care (01) ==
LOC: LABWHC1 10:44
PROVIDERS: ATTEND Nurse Practitioner Women's Health
DX: R53.83 Other fatigue (principal); F41.9 Anxiety disorder, unspecified; Z79.899 Other long term (current) drug therapy; Z86.39 Personal history of other endocrine, nutritional and metabolic disease
CPT/HCPCS: 36415; 80076; 82306; 84439; 84443; 85025

== ENCOUNTER 2018-09-02 13:33 | Emergency (ER) | payer OTHER ==
[2018-09-02 13:39] VITALS: RESP 18
[2018-09-02] MEDS ORDERED: SODIUM CHLORIDE 0.9% 1,000 ML IV ONE (14:20)
--- NOTE | 2018-09-02 14:38 | ED ---
Abdominal Pain HPI - General Chief Complaint: Abdominal Pain Stated Complaint: 6 wks , side pain Time Seen by Provider: 09/02/18 14:06 Source: patient, RN notes reviewed, old records reviewed Mode of arrival: ambulatory Limitations: no limitations - History of Present Illness Initial Comments: Patient is a 27-year-old female who presents emergency Department today with complaints of abdominal pain and cramping. She reports she's recently found out she is . Patient states that she believes she is proximally 7 weeks last menstrual. Her CUSTOMER SUPPORT TECHNICIAN is Dr. Canela. Patient states that she's had no vaginal bleeding. She states the pain seems worse on the right side. Patient is a female. Patient states that she has had a stillbirth and previous miscarriage. - Related Data Home Medications Medication Instructions Recorded Confirmed Multivitamins, Thera [Multivitamin 1 tab PO DAILY 02/22/18 02/25/18 (formulary)] Previous Rx's Medication Instructions Recorded Escitalopram [Lexapro] 20 mg PO DAILY #7 tablet 11/06/17 Allergies Allergy/AdvReac Type Severity Reaction Status Date / Time No Known Allergies Allergy Verified 02/25/18 11:37 Review of Systems ROS Statement: Those systems with pertinent positive or pertinent negative responses have been documented in the HPI. ROS Other: All systems not noted in ROS Statement are negative. Past Medical History Past Medical History: Thyroid Disorder Additional Past Medical History / Comment(s): anemia History of Any Multi-Drug Resistant Organisms: None Reported Past Surgical History: Hernia Repair Past Anesthesia/Blood Transfusion Reactions: No Reported Reaction Past Psychological History: Anxiety, Depression, Panic Disorder Smoking Status: Former smoker Past Alcohol Use History: None Reported Past Drug Use History: None Reported - Past Family History Father Family Medical History: Coronary Artery Disease (CAD) General Exam - General Exam Comments Initial Comments: Patient is a 27-year-old female. Alert and oriented 3. No distress. General: Well appearing, well nourished, in no distress. Oriented x 3, normal mood and affect . Ambulating without difficulty. Skin: Good turgor, no rash, unusual bruising or prominent lesions Hair: Normal texture and distribution. HEENT: Head: Normocephalic, atraumatic, no visible or palpable masses, depressions, or scaring. Eyes: Visual acuity intact, conjunctiva clear, sclera non-icteric, EOM intact, PERRL. Ears: EACs clear, TMs translucent & cone of light visualized. hearing intact. Nose: No external lesions, mucosa non-inflamed, septum and turbinates normal Mouth: Mucous membranes moist, no mucosal lesions. Teeth/Gums: No obvious caries or periodontal disease. No gingival inflammation or significant resorption. Pharynx: Mucosa non-inflamed, no tonsillar hypertrophy or exudate Neck: Supple, without lesions, bruits, or adenopathy, thyroid non-enlarged and non-tender Heart: No cardiomegaly or thrills; regular rate and rhythm, no murmur or gallop Lungs: Clear to auscultation and percussion Abdomen: Bowel sounds normal, no tenderness, organomegaly, masses, or hernia Back: Spine normal without deformity or tenderness, no CVA tenderness Extremities: No amputations or deformities, cyanosis, edema or varicosities, peripheral pulses intact Musculoskeletal: Normal gait and station. No misalignment, asymmetry, crepitation, defects, tenderness, masses, effusions, decreased range of motion, instability, atrophy or abnormal strength or tone in the head, neck, spine, ribs, pelvis or extremities. Neurologic: CN 2-12 normal. Sensation to pain, touch, and proprioception normal. DTRs normal in upper and lower extremities. No pathologic reflexes. Psychiatric: Oriented X3, intact recent and remote memory, judgment and insight, normal mood and affect. Pelvic: Vagina and cervix without lesions. Uterus and adnexa/parametria nontender without masses. Some minimal amount of discharge. Limitations: no limitations Course Vital Signs 09/02/18 09/02/18 13:34 17:43 Temperature 98.3 F 98.0 F Pulse Rate 75 87 Respiratory 18 18 Rate Blood Pressure 120/76 120/87 O2 Sat by Pulse 100 99 Oximetry Medical Decision Making - Medical Decision Making 27-year-old female presents return today for complaints of right-sided abdominal pain early . She says her CUSTOMER SUPPORT TECHNICIAN is Dr. Canela. Patient is a female. Patient at this time pelvic exam shows no adnexal tenderness. No bleeding. She had minimal abdominal pain. Ultrasound was completed and shows evidence of suspected uterine gestational sac. No other significant changes. Patient hCG levels 1999. Discusses is likely early her than 7 weeks. She does state she has irregular menstrual cycles. She is Rh+. I discussed Patient will repeat her hCG level and have prompt follow-up with her CUSTOMER SUPPORT TECHNICIAN. All questions answered return parameters were discussed. - Lab Data Result diagrams: 09/02/18 14:30 09/02/18 14:30 Lab Results 09/02/18 09/02/18 09/02/18 Range/Units 14:30 14:30 14:30 WBC 10.0 (3.8-10.6) k/uL RBC 4.67 (3.80-5.40) m/uL Hgb 13.2 (11.4-16.0) gm/dL Hct 40.5 (34.0-46.0) % MCV 86.6 (80.0-100.0) fL MCH 28.2 (25.0-35.0) pg MCHC 32.6 (31.0-37.0) g/dL RDW 16.0 H (11.5-15.5) % Plt Count 239 (150-450) k/uL Neutrophils % 63 % Lymphocytes % 27 % Monocytes % 5 % Eosinophils % 4 % Basophils % 1 % Neutrophils # 6.3 (1.3-7.7) k/uL Lymphocytes # 2.6 (1.0-4.8) k/uL Monocytes # 0.5 (0-1.0) k/uL Eosinophils # 0.4 (0-0.7) k/uL Basophils # 0.1 (0-0.2) k/uL Anisocytosis Slight PT (9.0-12.0) sec INR (<1.2) APTT (22.0-30.0) sec Sodium 139 (137-145) mmol/L Potassium 3.9 (3.5-5.1) mmol/L Chloride 104 (98-107) mmol/L Carbon Dioxide 25 (22-30) mmol/L Anion Gap 10 mmol/L BUN 9 (7-17) mg/dL Creatinine 0.60 (0.52-1.04) mg/dL Est GFR (CKD-EPI)AfAm >90 (>60 ml/min/1.73 sqM) Est GFR (CKD-EPI)NonAf >90 (>60 ml/min/1.73 sqM) Glucose 91 (74-99) mg/dL Calcium 9.7 (8.4-10.2) mg/dL Total Bilirubin 0.3 (0.2-1.3) mg/dL AST 22 (14-36) U/L ALT 24 (9-52) U/L Alkaline Phosphatase 64 (38-126) U/L Total Protein 7.4 (6.3-8.2) g/dL Albumin 4.2 (3.5-5.0) g/dL HCG, Quant mIU/mL Urine Color Urine Appearance (Clear) Urine pH (5.0-8.0) Ur Specific [place] (1.001-1.035) Urine Protein (Negative) Urine Glucose (UA) (Negative) Urine Ketones (Negative) Urine Blood (Negative) Urine Nitrite (Negative) Urine Bilirubin (Negative) Urine Urobilinogen (<2.0) mg/dL Ur Leukocyte Esterase (Negative) Urine RBC (0-5) /hpf Urine WBC (0-5) /hpf Ur Squamous Epith Cells (0-4) /hpf Amorphous Sediment (None) /hpf Urine Bacteria (None) /hpf Trichomonas Ag (Rapid) (Negative) Blood Type O Positive Blood Type Recheck No 09/02/18 09/02/18 09/02/18 Range/Units 14:30 14:30 14:30 WBC (3.8-10.6) k/uL RBC (3.80-5.40) m/uL Hgb (11.4-16.0) gm/dL Hct (34.0-46.0) % MCV (80.0-100.0) fL MCH (25.0-35.0) pg MCHC (31.0-37.0) g/dL RDW (11.5-15.5) % Plt Count (150-450) k/uL Neutrophils % % Lymphocytes % % Monocytes % % Eosinophils % % Basophils % % Neutrophils # (1.3-7.7) k/uL Lymphocytes # (1.0-4.8) k/uL Monocytes # (0-1.0) k/uL Eosinophils # (0-0.7) k/uL Basophils # (0-0.2) k/uL Anisocytosis PT 9.9 (9.0-12.0) sec INR 0.9 (<1.2) APTT 25.5 (22.0-30.0) sec Sodium (137-145) mmol/L Potassium (3.5-5.1) mmol/L Chloride (98-107) mmol/L Carbon Dioxide (22-30) mmol/L Anion Gap mmol/L BUN (7-17) mg/dL Creatinine (0.52-1.04) mg/dL Est GFR (CKD-EPI)AfAm (>60 ml/min/1.73 sqM) Est GFR (CKD-EPI)NonAf (>60 ml/min/1.73 sqM) Glucose (74-99) mg/dL Calcium (8.4-10.2) mg/dL Total Bilirubin (0.2-1.3) mg/dL AST (14-36) U/L ALT (9-52) U/L Alkaline Phosphatase (38-126) U/L Total Protein (6.3-8.2) g/dL Albumin (3.5-5.0) g/dL HCG, Quant 2602.0 mIU/mL Urine Color Colorless Urine Appearance Clear (Clear) Urine pH 6.5 (5.0-8.0) Ur Specific [place] 1.003 (1.001-1.035) Urine Protein Negative (Negative) Urine Glucose (UA) Negative (Negative) Urine Ketones Negative (Negative) Urine Blood Negative (Negative) Urine Nitrite Negative (Negative) Urine Bilirubin Negative (Negative) Urine Urobilinogen <2.0 (<2.0) mg/dL Ur Leukocyte Esterase Small H (Negative) Urine RBC 2 (0-5) /hpf Urine WBC 6 H (0-5) /hpf Ur Squamous Epith Cells 2 (0-4) /hpf Amorphous Sediment Rare H (None) /hpf Urine Bacteria Occasional H (None) /hpf Trichomonas Ag (Rapid) (Negative) Blood Type Blood Type Recheck 09/02/18 Range/Units 17:27 WBC (3.8-10.6) k/uL RBC (3.80-5.40) m/uL Hgb (11.4-16.0) gm/dL Hct (34.0-46.0) % MCV (80.0-100.0) fL MCH (25.0-35.0) pg MCHC (31.0-37.0) g/dL RDW (11.5-15.5) % Plt Count (150-450) k/uL Neutrophils % % Lymphocytes % % Monocytes % % Eosinophils % % Basophils % % Neutrophils # (1.3-7.7) k/uL Lymphocytes # (1.0-4.8) k/uL Monocytes # (0-1.0) k/uL Eosinophils # (0-0.7) k/uL Basophils # (0-0.2) k/uL Anisocytosis PT (9.0-12.0) sec INR (<1.2) APTT (22.0-30.0) sec Sodium (137-145) mmol/L Potassium (3.5-5.1) mmol/L Chloride (98-107) mmol/L Carbon Dioxide (22-30) mmol/L Anion Gap mmol/L BUN (7-17) mg/dL Creatinine (0.52-1.04) mg/dL Est GFR (CKD-EPI)AfAm (>60 ml/min/1.73 sqM) Est GFR (CKD-EPI)NonAf (>60 ml/min/1.73 sqM) Glucose (74-99) mg/dL Calcium (8.4-10.2) mg/dL Total Bilirubin (0.2-1.3) mg/dL AST (14-36) U/L ALT (9-52) U/L Alkaline Phosphatase (38-126) U/L Total Protein (6.3-8.2) g/dL Albumin (3.5-5.0) g/dL HCG, Quant mIU/mL Urine Color Urine Appearance (Clear) Urine pH (5.0-8.0) Ur Specific [place] (1.001-1.035) Urine Protein (Negative) Urine Glucose (UA) (Negative) Urine Ketones (Negative) Urine Blood (Negative) Urine Nitrite (Negative) Urine Bilirubin (Negative) Urine Urobilinogen (<2.0) mg/dL Ur Leukocyte Esterase (Negative) Urine RBC (0-5) /hpf Urine WBC (0-5) /hpf Ur Squamous Epith Cells (0-4) /hpf Amorphous Sediment (None) /hpf Urine Bacteria (None) /hpf Trichomonas Ag (Rapid) Negative (Negative) Blood Type Blood Type Recheck - Radiology Data Radiology results: report reviewed Interpreted by me: Ultrasound shows findings that may suggest really just said gestation. Follow- up suggested. Disposition Clinical Impression: Abdominal pain affecting Disposition: HOME SELF-CARE Condition: Good Instructions (If sedation given, give patient instructions): Abdominal Pain in (ED) Additional Instructions: Follow up with PCP and OB. Call Monday for appt with Dr. Mcclelland. Return to ED if any alarming signs or symptoms occur. Is patient prescribed a controlled substance at d/c from ED?: No Referrals: Joshua French Jr, DO [Primary Care Provider] - 1-2 days Jayden Mcclelland DO [Doctor of Osteopathic Medicine] - 1-2 days Time of Disposition: 17:28
[2018-09-02 14:48] LABS: Anisocytosis Slight; Basophils # (A) 0.1 k/uL (0-0.2); Basophils % (A) 1 %; Eosinophils # (A) 0.4 k/uL (0-0.7); Eosinophils % (A) 4 %; HCT 40.5 % (34.0-46.0); HGB 13.2 gm/dL (11.4-16.0); Lymphocytes # (A) 2.6 k/uL (1.0-4.8); Lymphocytes % (A) 27 %; MCH 28.2 pg (25.0-35.0); MCHC 32.6 g/dL (31.0-37.0); MCV 86.6 fL (80.0-100.0); Mean Platelet Volume 8.6; Monocytes # (A) 0.5 k/uL (0-1.0); Monocytes % (A) 5 %; Neutrophils # (A) 6.3 k/uL (1.3-7.7); Neutrophils % (A) 63 %; Platelet Count 239 k/uL (150-450); RBC 4.67 m/uL (3.80-5.40)
[2018-09-02 14:55] LABS: ALT 24 U/L (9-52); AST 22 U/L (14-36); African American GFR (CKD) >90 (>60 ml/min/1.73 sqM); Albumin 4.2 g/dL (3.5-5.0); Alkaline Phosphatase 64 U/L (38-126); Anion Gap 10 mmol/L; Blood Urea Nitrogen 9 mg/dL (7-17); Calcium 9.7 mg/dL (8.4-10.2); Carbon Dioxide 25 mmol/L (22-30); Chloride 104 mmol/L (98-107); Glucose 91 mg/dL (74-99); Non-African American GFR(CKD) >90 (>60 ml/min/1.73 sqM); Potassium 3.9 mmol/L (3.5-5.1); Sodium 139 mmol/L (137-145); Total Bilirubin 0.3 mg/dL (0.2-1.3); Total Protein 7.4 g/dL (6.3-8.2)
[2018-09-02 14:57] LABS: INR 0.9 (<1.2); Partial Thromboplastin Time 25.5 sec (22.0-30.0); Prothrombin Time 9.9 sec (9.0-12.0)
[2018-09-02 15:14] LABS: Amorphous Sediment,Urine Rare /hpf; Appearance,Urine Clear (Clear); Bacteria,Urine Occasional /hpf; Bilirubin,Urine Negative (Negative); Blood,Urine Negative (Negative); Color,Urine Colorless; Glucose,Urine (UA) Negative (Negative); Ketones,Urine Negative (Negative); Leukocyte Esterase,Urine Small (Negative); Nitrite,Urine Negative (Negative); PH, Urine 6.5 (5.0-8.0); Protein,Urine Negative (Negative); RBC,Urine 2 /hpf (0-5); Specific Gravity,Urine 1.003 (1.001-1.035); Squamous Epithelial Cell,Urine 2 /hpf (0-4); Urobilinogen,Urine <2.0 mg/dL (<2.0); WBC,Urine 6 /hpf (0-5)
--- NOTE | 2018-09-02 15:43 | US ---
EXAMINATION TYPE: Transabdominal DATE OF EXAM: 09/02/2018 3:29 PM COMPARISON: NONE CLINICAL HISTORY: pain. RLQ pain EXAM PERFORMED: Transvaginal (TV) and Transabdominal (TA) endovaginal scanning performed for better evaluation of the uterus and ovaries EXAM MEASUREMENTS: GESTATIONAL AGE / DATING Physician Established: Not yet established Dates by LMP: 07/16/2018 (6 weeks/6 days) EDC: 04/22/2019 Dates by First Scan: No previous this is first scan Dates by Current Scan for: No IUP seen on today's scan MATERNAL ANATOMY Uterus: 10.7 x 3.9 x 5.5 cm Right Ovary: 3.3 x 2.4 x 2.9 cm Left Ovary: 4.0 x 2.3 x 2.0 cm Post CDS / Adnexa: wnl Presence of free fluid: none GESTATION / SURVEY CRL: not identified MSD: 0.7 cm, measures out of range (too early) Yolk Sac (normal less than 6mm): 0.2 cm Date of LMP: 07/16/2018 Beta HcG (if available): not available at time of scan There is what appears to be a gestational sac with a yolk sac in the uterus. This appears as an early IUP. Grayscale and color Doppler imaging performed. Color flow noted to the ovaries. IMPRESSION: findings may represent an early gestation. Follow-up suggested.
[2018-09-02 17:44] VITALS: BP 120/87; PULSE 87; TEMP 98
[2018-09-04 16:11] LABS: N. gonorrhoeae,PCR Negative (Neg,Equiv); Neisseria Source Vagina
[2018-09-04 16:15] LABS: C. trachomatis,PCR Negative (Neg,Equiv); Chlamydia trachomatis Source Vagina
== END 2018-09-02 17:44 | disposition home or self-care (01) ==
LOC: EC 13:33
DX: O99.89 Other specified diseases and conditions complicating pregnancy, childbirth and the puerperium (principal); R10.9 Unspecified abdominal pain; Z67.90 Unspecified blood type, Rh positive; Z87.891 Personal history of nicotine dependence; Z87.59 Personal history of other complications of pregnancy, childbirth and the puerperium; Z3A.01 Less than 8 weeks gestation of pregnancy
CPT/HCPCS: 36415; 76801; 76817; 80053; 81001; 84702; 85025; 85610; 85730; 86900; 86901; 87070; 87086; 87205; 87491; 87591; 87808; 96360; 96361; 99284

== ENCOUNTER → 2018-09-06 | Outpatient (CLI) | payer OTHER | END | disposition home or self-care (01) | LOC: LABWHC1 13:51 | PROVIDERS: ATTEND Obstetrics & Gynecology | DX: O20.0 Threatened abortion (principal) | CPT/HCPCS: 36415; 84702 ==

== ENCOUNTER → 2018-09-21 | Outpatient (CLI) | payer OTHER ==
[2018-09-21 17:14] LABS: HCT 38.5 % (34.0-46.0); HGB 12.8 gm/dL (11.4-16.0); MCH 28.9 pg (25.0-35.0); MCHC 33.3 g/dL (31.0-37.0); MCV 86.7 fL (80.0-100.0); Mean Platelet Volume 8.4; Platelet Count 195 k/uL (150-450); RBC 4.44 m/uL (3.80-5.40); RDW 14.7 % (11.5-15.5); WBC 11.3 k/uL (3.8-10.6)
[2018-09-21 17:32] LABS: African American GFR (CKD) >90 (>60 ml/min/1.73 sqM); Glucose 125 mg/dL (74-99)
[2018-09-21 17:46] LABS: T4, Free (Free Thyroxine) 0.94 ng/dL (0.78-2.19)
[2018-09-21 23:39] LABS: T3, Uptake 23 % (23-37)
[2018-09-22 00:04] LABS: HIV 1 AB Non-Reactive (Non-Reactive); HIV AB P24 Non-Reactive (Non-Reactive); HIV P24 AG Non-Reactive (Non-Reactive)
--- NOTE | 2018-09-22 10:17 | US ---
EXAMINATION TYPE: Transabdominal DATE OF EXAM: 09/21/2018 4:30 PM COMPARISON: US 09/02/2018 CLINICAL HISTORY: Z36 CONFIRM DATES. Follow up to previous ER study EXAM PERFORMED: Transvaginal (TV) and Transabdominal (TA) EXAM MEASUREMENTS: GESTATIONAL AGE / DATING Physician Established: Not yet established Dates by LMP: LMP does not correlate Dates by First Scan: Too early to date Dates by Current Scan for: (8 weeks/0 days) EDC: 05/03/2019 MATERNAL ANATOMY Uterus: 10.3 x 5.8 x 7.5 cm Right Ovary: 3.6 x 2.2 x 1.9 cm Left Ovary: 3.0 x 1.3 x 1.3 cm Post CDS / Adnexa: wnl Presence of free fluid: No Presence of corpus luteal cyst: No Presence of subchorionic bleed: Yes, measuring 2.3 x 1.3 x 3.2 cm GESTATION / SURVEY CRL: 1.5 cm (8 weeks/0 days) Yolk Sac (normal less than 6mm): 3 mm Heart Rate: 166 bpm Rhythm: Normal IUP: Viable IUP Date of LMP: LMP does not correlate Beta HcG (if available): Not available at this time IMPRESSION: Viable IUP measuring 8 weeks/0 days with an LUIS ENRIQUE of 05/03/2019. Subchorionic bleed measuring 2.3 x 1.3 x 3.2 cm. Within the same gestational sac, there is a possible second yolk sac and pole with n o heart tones visualized measuring 6 weeks/ 2 days.
== END | disposition home or self-care (01) ==
LOC: RADUSWWP 16:01
PROVIDERS: ATTEND Obstetrics & Gynecology
DX: Z34.81 Encounter for supervision of other normal pregnancy, first trimester (principal)
CPT/HCPCS: 76801; 76817; 82565; 82947; 84439; 84443; 84479; 85027; 86762; 86780; 86850; 86900; 86901; 87340; 87390

== ENCOUNTER 2018-11-23 20:54 | Emergency (ER) | payer OTHER ==
[2018-11-23 21:39] VITALS: RESP 18
[2018-11-23] MEDS ORDERED: SODIUM CHLORIDE 0.9% 500 ML 500 ML IV ONE (22:31)
[2018-11-23 23:08] LABS: Basophils % (A) 0 %; Eosinophils # (A) 0.3 k/uL (0-0.7); Eosinophils % (A) 3 %; HCT 35.1 % (34.0-46.0); HGB 11.9 gm/dL (11.4-16.0); Lymphocytes # (A) 2.9 k/uL (1.0-4.8); Lymphocytes % (A) 29 %; MCH 29.2 pg (25.0-35.0); Mean Platelet Volume 8.2; Monocytes # (A) 0.4 k/uL (0-1.0); Monocytes % (A) 4 %; Neutrophils # (A) 6.2 k/uL (1.3-7.7); Neutrophils % (A) 62 %; Platelet Count 188 k/uL (150-450); RBC 4.08 m/uL (3.80-5.40); RDW 14.3 % (11.5-15.5); WBC 10.1 k/uL (3.8-10.6)
--- NOTE | 2018-11-23 23:15 | ED ---
Female Urogenital HPI - General Chief complaint: Vaginal Bleeding Stated complaint: 17 wks and bleeding Time Seen by Provider: 11/23/18 22:31 Source: patient Mode of arrival: ambulatory Limitations: no limitations - History of Present Illness Initial comments: A2 presents immersed prior for evaluation of bleeding and . Patient currently 17 weeks . Patient states the past day she has had very degrees of vaginal bleeding. She states that initially it was bright red then it became light pink she states again she or bright red bleeding denies clots. Patient denies any severe pain since she has mild discomfort. Patient states that she denies any dysuria urgency frequency or vaginal discharge. There is back pain. Patient denies lightheadedness heart palpitations or any other complaints. Remaining review of system negative. Upon arrival patient appears well signs acute distress. - Related Data Home Medications Medication Instructions Recorded Confirmed Multivitamins, Thera [Multivitamin 1 tab PO DAILY 02/22/18 11/23/18 (formulary)] Allergies Allergy/AdvReac Type Severity Reaction Status Date / Time No Known Allergies Allergy Verified 02/25/18 11:37 Review of Systems ROS Statement: Those systems with pertinent positive or pertinent negative responses have been documented in the HPI. ROS Other: All systems not noted in ROS Statement are negative. Past Medical History Past Medical History: Thyroid Disorder Additional Past Medical History / Comment(s): anemia History of Any Multi-Drug Resistant Organisms: None Reported Past Surgical History: Hernia Repair Past Anesthesia/Blood Transfusion Reactions: No Reported Reaction Past Psychological History: Anxiety, Depression, Panic Disorder Smoking Status: Former smoker Past Alcohol Use History: None Reported Past Drug Use History: None Reported - Past Family History Father Family Medical History: Coronary Artery Disease (CAD) General Exam - General Exam Comments Initial Comments: General: The patient is awake and alert, in no distress, and does not appear acutely ill. Eye: Pupils are equal, round and reactive to light, extra-ocular movements are intact. No nystagmus. There is normal conjunctiva bilaterally. No signs of icterus. Cardiovascular: There is a regular rate and rhythm. No murmur, rub or gallop is appreciated. Respiratory: Lungs are clear to auscultation, respirations are non-labored, breath sounds are equal. No wheezes, stridor, rales, or rhonchi. Gastrointestinal: Soft, non-distended, non-tender abdomen without masses or organomegaly noted. There is no rebound or guarding present. Pelvic exam no external lesions. Mild amount of blood in vaginal vault dark red cervical os is closed. No Cervical motion tenderness Musculoskeletal: Normal ROM, no tenderness. Strength 5/5. Sensation intact. Radial pulses equal bilaterally 2+. Neurological: A&O x 3. CN II-XII intact grossly, There are no obvious motor or sensory deficits. Coordination appears grossly intact. Speech is normal. Skin: Skin is warm and dry and no rashes or lesions are noted. Psychiatric: Cooperative, appropriate mood & affect, normal judgment. Limitations: no limitations Course Vital Signs 11/23/18 11/24/18 21:35 01:21 Temperature 98.1 F 98 F Pulse Rate 85 100 Respiratory 18 18 Rate Blood Pressure 117/74 97/57 O2 Sat by Pulse 97 100 Oximetry Medical Decision Making - Medical Decision Making 28-year-old female currently 17 weeks presenting for bleeding. Ultraso und negative for abruption or previa. Patient has small amount of blood dark brown in the vaginal vault. Cervical os closed. No severe pain and mild cramping. At this time feel this is most likely a threatened miscarriage. Patient O+. No Amaury indicated at this time. Patient case discussed with her provider patient will be discharged with outpatient MANAGER [employer] follow-up. Return parameters including persistent or heavy bleeding were discussed which more immediate return to the emergency Department patient verbalized understanding was discharged appearing well - Lab Data Result diagrams: 11/23/18 22:50 11/23/18 22:50 Lab Results 11/23/18 11/23/18 11/23/18 Range/Units 22:50 22:50 22:50 WBC 10.1 (3.8-10.6) k/uL RBC 4.08 (3.80-5.40) m/uL Hgb 11.9 (11.4-16.0) gm/dL Hct 35.1 (34.0-46.0) % MCV 86.0 (80.0-100.0) fL MCH 29.2 (25.0-35.0) pg MCHC 34.0 (31.0-37.0) g/dL RDW 14.3 (11.5-15.5) % Plt Count 188 (150-450) k/uL Neutrophils % 62 % Lymphocytes % 29 % Monocytes % 4 % Eosinophils % 3 % Basophils % 0 % Neutrophils # 6.2 (1.3-7.7) k/uL Lymphocytes # 2.9 (1.0-4.8) k/uL Monocytes # 0.4 (0-1.0) k/uL Eosinophils # 0.3 (0-0.7) k/uL Basophils # 0.0 (0-0.2) k/uL Sodium 138 (137-145) mmol/L Potassium 3.3 L (3.5-5.1) mmol/L Chloride 105 (98-107) mmol/L Carbon Dioxide 24 (22-30) mmol/L Anion Gap 9 mmol/L BUN 8 (7-17) mg/dL Creatinine 0.52 (0.52-1.04) mg/dL Est GFR (CKD-EPI)AfAm >90 (>60 ml/min/1.73 sqM) Est GFR (CKD-EPI)NonAf >90 (>60 ml/min/1.73 sqM) Glucose 115 H (74-99) mg/dL Calcium 9.6 (8.4-10.2) mg/dL Total Bilirubin <0.1 L (0.2-1.3) mg/dL AST 15 (14-36) U/L ALT 9 (9-52) U/L Alkaline Phosphatase 56 (38-126) U/L Total Protein 7.0 (6.3-8.2) g/dL Albumin 3.7 (3.5-5.0) g/dL Urine Color Urine Appearance (Clear) Urine pH (5.0-8.0) Ur Specific [place] (1.001-1.035) Urine Protein (Negative) Urine Glucose (UA) (Negative) Urine Ketones (Negative) Urine Blood (Negative) Urine Nitrite (Negative) Urine Bilirubin (Negative) Urine Urobilinogen (<2.0) mg/dL Ur Leukocyte Esterase (Negative) Urine RBC (0-5) /hpf Urine WBC (0-5) /hpf Ur Squamous Epith Cells (0-4) /hpf Amorphous Sediment (None) /hpf Urine Mucus (None) /hpf Urine HCG, Qual (Not Detectd) Blood Type O Positive Blood Type Recheck O Pos Bld Type Recheck Status No Antibody Screen NEGATIVE Spec Expiration Date 11/26/2018201811/24/18 11/24/18 Range/Units 00:05 00:05 WBC (3.8-10.6) k/uL RBC (3.80-5.40) m/uL Hgb (11.4-16.0) gm/dL Hct (34.0-46.0) % MCV (80.0-100.0) fL MCH (25.0-35.0) pg MCHC (31.0-37.0) g/dL RDW (11.5-15.5) % Plt Count (150-450) k/uL Neutrophils % % Lymphocytes % % Monocytes % % Eosinophils % % Basophils % % Neutrophils # (1.3-7.7) k/uL Lymphocytes # (1.0-4.8) k/uL Monocytes # (0-1.0) k/uL Eosinophils # (0-0.7) k/uL Basophils # (0-0.2) k/uL Sodium (137-145) mmol/L Potassium (3.5-5.1) mmol/L Chloride (98-107) mmol/L Carbon Dioxide (22-30) mmol/L Anion Gap mmol/L BUN (7-17) mg/dL Creatinine (0.52-1.04) mg/dL Est GFR (CKD-EPI)AfAm (>60 ml/min/1.73 sqM) Est GFR (CKD-EPI)NonAf (>60 ml/min/1.73 sqM) Glucose (74-99) mg/dL Calcium (8.4-10.2) mg/dL Total Bilirubin (0.2-1.3) mg/dL AST (14-36) U/L ALT (9-52) U/L Alkaline Phosphatase (38-126) U/L Total Protein (6.3-8.2) g/dL Albumin (3.5-5.0) g/dL Urine Color Light Yellow Urine Appearance Clear (Clear) Urine pH 6.5 (5.0-8.0) Ur Specific [place] 1.013 (1.001-1.035) Urine Protein Negative (Negative) Urine Glucose (UA) 3+ H (Negative) Urine Ketones Negative (Negative) Urine Blood Moderate H (Negative) Urine Nitrite Negative (Negative) Urine Bilirubin Negative (Negative) Urine Urobilinogen <2.0 (<2.0) mg/dL Ur Leukocyte Esterase Negative (Negative) Urine RBC 3 (0-5) /hpf Urine WBC 1 (0-5) /hpf Ur Squamous Epith Cells 3 (0-4) /hpf Amorphous Sediment Rare H (None) /hpf Urine Mucus Rare H (None) /hpf Urine HCG, Qual Detected (Not Detectd) Blood Type Blood Type Recheck Bld Type Recheck Status Antibody Screen Spec Expiration Date Disposition Clinical Impression: Second trimester bleeding Disposition: HOME SELF-CARE Condition: Good Instructions (If sedation given, give patient instructions): Threatened Miscarriage (ED) Additional Instructions: Please use medication as discussed. Please follow-up with OBGYN in the next 2 days. Please return to emergency room if the symptoms increase or worsen or for any other concerns. Is patient prescribed a controlled substance at d/c from ED?: No Referrals: Joshua French Jr, DO [Primary Care Provider] - 1-2 days Jayden Mcclelland DO [Doctor of Osteopathic Medicine] - 1-2 days Time of Disposition: 01:04
[2018-11-23 23:26] LABS: ALT 9 U/L (9-52); AST 15 U/L (14-36); African American GFR (CKD) >90 (>60 ml/min/1.73 sqM); Albumin 3.7 g/dL (3.5-5.0); Alkaline Phosphatase 56 U/L (38-126); Anion Gap 9 mmol/L; Blood Urea Nitrogen 8 mg/dL (7-17); Calcium 9.6 mg/dL (8.4-10.2); Carbon Dioxide 24 mmol/L (22-30); Chloride 105 mmol/L (98-107); Glucose 115 mg/dL (74-99); Non-African American GFR(CKD) >90 (>60 ml/min/1.73 sqM); Potassium 3.3 mmol/L (3.5-5.1); Sodium 138 mmol/L (137-145); Total Bilirubin <0.1 mg/dL (0.2-1.3)
--- NOTE | 2018-11-23 23:30 | US ---
EXAMINATION TYPE: US OB >= 14 wk fetus DATE OF EXAM: 11/23/2018 COMPARISON: 09/21/2018 CLINICAL HISTORY: bleeding, red urine, pink discharge, cramping TECHNIQUE: OBTA GESTATIONAL AGE / DATING Physician Established: (17 weeks/0 days) EDC: 05/03/2019 Dates by LMP: LMP unknown Dates by First Scan: No previous this is first scan Dates by Current Scan: (17 weeks/1 days) EDC: 05/02/2019 SURVEY IUP: Single PLACENTA: Posterior PREVIA: No Previa EVELYN: 10.5 cm Normal CERVICAL LENGTH (transabdominal: norm > 3.0cm): 3.8 cm BIOMETRY PRESENTATION: Variable BPD: 3.6 cm 17 weeks / 0 days HC: 13.7 cm 17 weeks / 1 days AC: 12.2 cm 17 weeks / 6 days FL: 2.3 cm 16 weeks / 6 days ESTIMATED WEIGHT IN GRAMS: 190 grams ESTIMATED WEIGHT IN LBS/OZ: 0 lbs. 7 oz. WEIGHT PERCENTAGE BASED ON ESTABLISHED DATES: 65.1% HC/AC: 1.1 Normal FL/AC: 18.8 Normal HEART RATE: 146 bpm RHYTHM: Normal IMPRESSION: Ultrasound gestational age is 17 weeks and 1 day. There is satisfactory growth compared to old exam. No complicating process. No sign of placenta previa or placenta abruption.
[2018-11-24] MEDS ORDERED: POTASSIUM CHLORIDE ER 20 MEQ TAB.ER PO STA (00:08)
[2018-11-24 00:35] LABS: Amorphous Sediment,Urine Rare /hpf; Appearance,Urine Clear (Clear); Bilirubin,Urine Negative (Negative); Blood,Urine Moderate (Negative); Color,Urine Light Yellow; Glucose,Urine (UA) 3+ (Negative); Ketones,Urine Negative (Negative); Leukocyte Esterase,Urine Negative (Negative); Mucus,Urine Rare /hpf; Nitrite,Urine Negative (Negative); PH, Urine 6.5 (5.0-8.0); Protein,Urine Negative (Negative); RBC,Urine 3 /hpf (0-5); Specific Gravity,Urine 1.013 (1.001-1.035); Squamous Epithelial Cell,Urine 3 /hpf (0-4); Urobilinogen,Urine <2.0 mg/dL (<2.0); WBC,Urine 1 /hpf (0-5)
[2018-11-24 01:23] VITALS: BP 97/57; PULSE 100; TEMP 98
== END 2018-11-24 01:23 | disposition home or self-care (01) ==
LOC: EC 20:54
DX: O20.9 Hemorrhage in early pregnancy, unspecified (principal); Z3A.17 17 weeks gestation of pregnancy; Z87.891 Personal history of nicotine dependence
CPT/HCPCS: 36415; 76805; 80053; 81001; 81025; 85025; 86850; 86900; 86901; 96360; 99284

== ENCOUNTER 2019-01-25 10:07 | Outpatient (CLI) | payer OTHER ==
[2019-01-25 11:27] LABS: Appearance,Urine Cloudy (Clear); Bacteria,Urine Rare /hpf; Bilirubin,Urine Negative (Negative); Blood,Urine Negative (Negative); Color,Urine Yellow; Glucose,Urine (UA) Negative (Negative); Ketones,Urine Negative (Negative); Leukocyte Esterase,Urine Negative (Negative); Mucus,Urine Occasional /hpf; Nitrite,Urine Negative (Negative); PH, Urine 6.5 (5.0-8.0); Protein,Urine Trace (Negative); RBC,Urine 2 /hpf (0-5); Specific Gravity,Urine 1.022 (1.001-1.035); Squamous Epithelial Cell,Urine 23 /hpf (0-4); Urobilinogen,Urine <2.0 mg/dL (<2.0); WBC,Urine 2 /hpf (0-5)
--- NOTE | 2019-01-25 11:35 | US ---
EXAMINATION TYPE: US abdomen complete DATE OF EXAM: 01/25/2019 COMPARISON: NONE CLINICAL HISTORY: 26 weeks preg abd pain. Epigastric pain EXAM MEASUREMENTS: Liver Length: 17.7 cm Gallbladder Wall: 0.2 cm CBD: 0.3 cm Spleen: 11.3 cm Right Kidney: 12.8 x 4.8 x 4.9 cm Left Kidney: 14.0 x 5.6 x 5.9 cm Pancreas: wnl Liver: Upper limits of normal for size Gallbladder: wnl Evidence for sonographic Brandt's sign: No CBD: wnl Spleen: wnl Right Kidney: wnl, lower pole gassed out Left Kidney: wnl Upper IVC: wnl Abd Aorta: wnl There is no ascites. The liver is homogenous. The intrahepatic portion of the IVC and proximal abdominal aorta are within normal limits. There is no evidence of cholelithiasis. Common bile duct is unremarkable. The visu alized portions of the pancreas are homogenous. The spleen is unremarkable. Kidneys are symmetric a nd free of hydronephrosis. No renal lesions are seen. IMPRESSION: No significant abnormalities evident
[2019-01-25 11:37] LABS: Basophils % (A) 0 %; Eosinophils # (A) 0.2 k/uL (0-0.7); Eosinophils % (A) 2 %; HGB 12.2 gm/dL (11.4-16.0); Hypochromasia Slight; Lymphocytes # (A) 1.1 k/uL (1.0-4.8); Lymphocytes % (A) 12 %; MCH 28.4 pg (25.0-35.0); MCHC 32.8 g/dL (31.0-37.0); MCV 86.4 fL (80.0-100.0); Mean Platelet Volume 10.6; Monocytes # (A) 0.4 k/uL (0-1.0); Monocytes % (A) 4 %; Neutrophils # (A) 7.3 k/uL (1.3-7.7); Neutrophils % (A) 80 %; Platelet Count 167 k/uL (150-450); RBC 4.29 m/uL (3.80-5.40); RDW 14.1 % (11.5-15.5); WBC 9.1 k/uL (3.8-10.6)
[2019-01-25 11:48] LABS: ALT 9 U/L (4-34); AST 17 U/L (14-36); African American GFR (CKD) >90 (>60 ml/min/1.73 sqM); Albumin 3.6 g/dL (3.5-5.0); Alkaline Phosphatase 74 U/L (38-126); Anion Gap 8 mmol/L; Blood Urea Nitrogen 6 mg/dL (7-17); Calcium 9.2 mg/dL (8.4-10.2); Carbon Dioxide 20 mmol/L (22-30); Chloride 108 mmol/L (98-107); Glucose 125 mg/dL (74-99); Non-African American GFR(CKD) >90 (>60 ml/min/1.73 sqM); Potassium 3.6 mmol/L (3.5-5.1); Sodium 136 mmol/L (137-145); Total Bilirubin 0.4 mg/dL (0.2-1.3); Total Protein 6.8 g/dL (6.3-8.2)
[2019-01-25 20:33] VITALS: BP 118/71; PULSE 88; RESP 18; TEMP 97.7
--- NOTE | 2019-02-02 13:31 | P.MSEPDOC ---
Presenting Problems - Arrival Data Date of Arrival on Unit: 01/25/19 Time of Arrival on Unit: 10:07 Mode of Transport: Portable - Complaint OB-Reason for Admission/Chief Complaint: Pain Medical History - Information : 5 Para: 2 Term: 2 Abortions: Spontaneous or Elective: 2 - Gestational Age Gestational Age by LUIS ENRIQUE (wks/days): 26 Weeks and 1 Days Review of Systems - Review of Systems Constitutional: No problems Breast: No problems ENT: No problems Cardiovascular: No problems Respiratory: No problems Gastrointestinal: Pain Genitourinary: No problems Musculoskeletal: No problems Neurological: No problems Skin: No problems Vital Signs - Temperature Temperature: 97.7 F - Pulse Right Pulse Rate: 88 Pulse Assessment Method: Automatic Cuff - Respirations Respiratory Rate: 18 Oxygen Delivery Method: Room Air - Blood Pressure Right Arm Blood Pressure: 118/71 Blood Pressure Mean: 86 Blood Pressure Source: Automatic Cuff Medical Screen Scoring (Pre) - Cervical Exam Dilation: Exam Deferred Effacement: Exam Deferred - Uterine Contractions Frequency: N/A Duration: N/A Intensity: N/A - Maternal Vital Signs Maternal Temperature: N/A Maternal Blood Pressure: N/A Signs of Preeclampsia: Epigastric Pain = 1 Maternal Respirations: N/A - Maternal Trauma Maternal Trauma: N/A - Assessment - Baby A Baseline FHR: 145 Position: N/A Station: N/A - Total Score - Baby A Total Score - Baby A: 1 - Total Score - Baby B Total Score - Baby B: 1 - Total Score - Baby C Total Score - Baby C: 1 - Level of Risk - Baby A Level of Risk - Baby A: Low (0-5) - Level of Risk - Baby B Level of Risk - Baby B: Low (0-5) - Level of Risk - Baby C Level of Risk - Baby C: Low (0-5) Physician Notification (Pre) - Physician Notified Physician Notified Date: 01/25/19 Physician Notified Time: 10:42 New Order Received: Yes - Notification Comment Comment: Jennifer Mcclelland updated by phone pts reason for visit. orders recieved for US abd. and ua cmp cbc. [id number] Dr Mcclelland updated with lab results and US report. also with pt now stating she. ate coney dogs last night and had problems with gastritis prior to preg and took pepcid Discharge order receivedpt advised of plan for discharge. Dr Mcclelland advises over the counter Pepcid to. be taken per label instructions for epigastric pain. Pt states was on it prior to preg. for gastritis. Disposition - Disposition OB Disposition: Discharge to home Discharge Date: 01/25/19 Discharge Time: 12:25 I agree with the RN Medical Screening Exam: Yes Risk & Benefit of care provided described in d/c instruction: Yes Diagnosis: GASTRITIS, UNSPECIFIED, WITHOUT BLEEDING
== END 2019-01-25 12:10 | disposition home or self-care (01) ==
LOC: FBPOP 10:07
PROVIDERS: ATTEND Obstetrics & Gynecology
DX: O26.892 Other specified pregnancy related conditions, second trimester (principal); K29.70 Gastritis, unspecified, without bleeding; Z3A.26 26 weeks gestation of pregnancy
CPT/HCPCS: 80053; 85025; 81001; 76700; G0463; 99213

== ENCOUNTER 2019-02-07 19:36 | Outpatient (CLI) | payer OTHER ==
[2019-02-07 21:18] VITALS: BP 115/65; RESP 16; TEMP 96.9
--- NOTE | 2019-02-13 08:37 | P.MSEPDOC ---
Presenting Problems - Arrival Data Date of Arrival on Unit: 02/07/19 Time of Arrival on Unit: 19:36 Mode of Transport: Wheelchair - Complaint OB-Reason for Admission/Chief Complaint: Other Medical History - Information : 5 Para: 2 Term: 2 : 0 Abortions: Spontaneous or Elective: 2 Number of Living Children: 2 - Gestational Age Gestational Age by LUIS ENRIQUE (wks/days): 28 Weeks and 2 Days Review of Systems - Review of Systems Constitutional: No problems Breast: No problems ENT: No problems Cardiovascular: No problems Respiratory: No problems Gastrointestinal: No problems Genitourinary: No problems Musculoskeletal: No problems Neurological: No problems Skin: No problems Vital Signs - Temperature Temperature: 96.9 F Temperature Source: Temporal Artery Scan - Respirations Respiratory Rate: 16 Oxygen Delivery Method: Room Air O2 Sat by Pulse Oximetry: 98 - Blood Pressure Right Arm Blood Pressure: 115/65 Blood Pressure Mean: 81 Blood Pressure Source: Automatic Cuff Medical Screen Scoring (Pre) - Cervical Exam Dilation: 0 cm = 0 Membranes: Intact - Uterine Contractions Frequency: N/A - Maternal Vital Signs Maternal Temperature: N/A Maternal Blood Pressure: N/A Signs of Preeclampsia: N/A Maternal Respirations: N/A - Maternal Trauma Maternal Trauma: N/A - Assessment - Baby A Baseline FHR: 130 Heart Rate - NICHD Category: Category I (Normal) = 0 NST: Reactive Position: N/A Station: N/A - Total Score - Baby A Total Score - Baby A: 0 - Total Score - Baby B Total Score - Baby B: 0 - Total Score - Baby C Total Score - Baby C: 0 - Level of Risk - Baby A Level of Risk - Baby A: Low (0-5) Physician Notification (Pre) - Physician Notified Physician Notified Date: 02/07/19 Physician Notified Time: 20:30 New Order Received: Yes Disposition - Disposition OB Disposition: Discharge to home Discharge Date: 02/07/19 Discharge Time: 20:45 I agree with the RN Medical Screening Exam: Yes Risk & Benefit of care provided described in d/c instruction: Yes Diagnosis: RELATED CONDITIONS, UNSPECIFIED, THIRD TRIMESTER
== END 2019-02-07 20:45 | disposition home or self-care (01) ==
LOC: FBPOP 19:36
PROVIDERS: ATTEND Obstetrics & Gynecology
DX: O26.93 Pregnancy related conditions, unspecified, third trimester (principal); Z3A.28 28 weeks gestation of pregnancy
CPT/HCPCS: 99213

== ENCOUNTER → 2019-02-11 | Outpatient (CLI) | payer OTHER ==
[2019-02-11 13:14] LABS: HCT 36.6 % (34.0-46.0); HGB 11.7 gm/dL (11.4-16.0); MCH 27.1 pg (25.0-35.0); MCHC 31.9 g/dL (31.0-37.0); MCV 85.1 fL (80.0-100.0); Mean Platelet Volume 10.7; Platelet Count 171 k/uL (150-450); RDW 14.5 % (11.5-15.5); WBC 9.1 k/uL (3.8-10.6)
== END | disposition home or self-care (01) ==
LOC: LABWHC1 11:35
PROVIDERS: ATTEND Obstetrics & Gynecology
DX: Z34.83 Encounter for supervision of other normal pregnancy, third trimester (principal); Z3A.00 Weeks of gestation of pregnancy not specified
CPT/HCPCS: 36415; 82950; 85027

== ENCOUNTER 2019-03-28 10:32 | Outpatient (CLI) | payer OTHER ==
[2019-03-28 11:01] LABS: Glucose,Whole Blood 86 mg/dL (75-99)
[2019-03-28 11:15] VITALS: BP 113/56; PULSE 93; RESP 18; TEMP 96.8
--- NOTE | 2019-04-04 14:53 | P.MSEPDOC ---
Presenting Problems - Arrival Data Date of Arrival on Unit: 03/28/19 Time of Arrival on Unit: 10:40 Mode of Transport: EMS - Complaint OB-Reason for Admission/Chief Complaint: Headache, Dizziness Medical History - Information : 5 Para: 2 Term: 2 : 0 Abortions: Spontaneous or Elective: 2 Number of Living Children: 2 - Gestational Age Gestational Age by LUIS ENRIQUE (wks/days): 35 Weeks and 2 Days Review of Systems - Review of Systems Constitutional: No problems Breast: No problems ENT: No problems Cardiovascular: No problems Respiratory: No problems Gastrointestinal: No problems Genitourinary: No problems Musculoskeletal: No problems Neurological: No problems Skin: No problems Vital Signs - Temperature Temperature: 96.8 F Temperature Source: Temporal Artery Scan - Pulse Right Brachial Pulse Rate: 93 Pulse Assessment Method: Automatic Cuff - Respirations Respiratory Rate: 18 Oxygen Delivery Method: Room Air O2 Sat by Pulse Oximetry: 97 - Blood Pressure Right Arm Blood Pressure: 113/56 Blood Pressure Mean: 75 Blood Pressure Source: Automatic Cuff Medical Screen Scoring (Pre) - Cervical Exam Dilation: Exam Deferred Effacement: Exam Deferred Membranes: Intact - Uterine Contractions Frequency: N/A Duration: N/A Intensity: N/A - Maternal Vital Signs Maternal Temperature: N/A Maternal Blood Pressure: N/A Signs of Preeclampsia: Headache = 1 Maternal Respirations: N/A - Maternal Trauma Maternal Trauma: N/A - Assessment - Baby A Baseline FHR: 130 Heart Rate - NICHD Category: Category I (Normal) = 0 NST: Reactive Position: N/A Station: N/A - Total Score - Baby A Total Score - Baby A: 1 - Total Score - Baby B Total Score - Baby B: 1 - Total Score - Baby C Total Score - Baby C: 1 - Level of Risk - Baby A Level of Risk - Baby A: Low (0-5) - Level of Risk - Baby B Level of Risk - Baby B: Low (0-5) - Level of Risk - Baby C Level of Risk - Baby C: Low (0-5) Physician Notification (Pre) - Physician Notified Physician Notified Date: 03/28/19 Physician Notified Time: 11:05 New Order Received: Yes - Notification Comment Comment: Patient may go home after reactive NST Disposition - Disposition OB Disposition: Discharge to home Discharge Date: 03/28/19 Discharge Time: 11:25 I agree with the RN Medical Screening Exam: Yes Risk & Benefit of care provided described in d/c instruction: Yes Diagnosis: HEADACHE
== END 2019-03-28 11:25 | disposition home or self-care (01) ==
LOC: FBPOP 10:32
PROVIDERS: ATTEND Obstetrics & Gynecology
DX: O99.89 Other specified diseases and conditions complicating pregnancy, childbirth and the puerperium (principal); R51 Headache; Z3A.35 35 weeks gestation of pregnancy
CPT/HCPCS: 59025; G0463; 99213

== ENCOUNTER 2019-04-08 17:11 | Emergency (ER) | payer OTHER ==
[2019-04-08 18:47] LABS: Amorphous Sediment,Urine Rare /hpf; Appearance,Urine Cloudy (Clear); Bacteria,Urine Few /hpf; Bilirubin,Urine Negative (Negative); Blood,Urine Negative (Negative); Color,Urine Yellow; Glucose,Urine (UA) Negative (Negative); Ketones,Urine Negative (Negative); Leukocyte Esterase,Urine Trace (Negative); Mucus,Urine Rare /hpf; Nitrite,Urine Negative (Negative); PH, Urine 6.5 (5.0-8.0); Protein,Urine Trace (Negative); RBC,Urine 6 /hpf (0-5); Specific Gravity,Urine 1.011 (1.001-1.035); Squamous Epithelial Cell,Urine 7 /hpf (0-4); Urobilinogen,Urine <2.0 mg/dL (<2.0); WBC,Urine 15 /hpf (0-5)
[2019-04-08] MEDS ORDERED: ACETAMINOPHEN TAB 325 MG TAB PO STA (19:02)
[2019-04-08] MEDS ORDERED: SODIUM CHLORIDE 0.9% 1,000 ML IV ONE (19:02)
[2019-04-08] MEDS ORDERED: SODIUM CHLORIDE 0.9% 1,000 ML IV SCH (19:15)
[2019-04-08 19:22] LABS: Anisocytosis Slight; Basophils % (A) 0 %; Eosinophils % (A) 1 %; HCT 35.4 % (34.0-46.0); HGB 11.4 gm/dL (11.4-16.0); Lymphocytes # (A) 0.8 k/uL (1.0-4.8); Lymphocytes % (A) 16 %; MCH 26.1 pg (25.0-35.0); MCHC 32.3 g/dL (31.0-37.0); MCV 80.5 fL (80.0-100.0); Mean Platelet Volume 11.5; Monocytes # (A) 0.5 k/uL (0-1.0); Monocytes % (A) 9 %; Neutrophils # (A) 3.7 k/uL (1.3-7.7); Neutrophils % (A) 71 %; Platelet Count 135 k/uL (150-450); RBC 4.39 m/uL (3.80-5.40); RDW 16.1 % (11.5-15.5); WBC 5.2 k/uL (3.8-10.6)
[2019-04-08 19:25] LABS: ALT 13 U/L (4-34); AST 29 U/L (14-36); African American GFR (CKD) >90 (>60 ml/min/1.73 sqM); Albumin 3.4 g/dL (3.5-5.0); Alkaline Phosphatase 122 U/L (38-126); Anion Gap 8 mmol/L; Blood Urea Nitrogen 6 mg/dL (7-17); Calcium 9.1 mg/dL (8.4-10.2); Carbon Dioxide 20 mmol/L (22-30); Chloride 105 mmol/L (98-107); Glucose 84 mg/dL (74-99); Non-African American GFR(CKD) >90 (>60 ml/min/1.73 sqM); Potassium 3.6 mmol/L (3.5-5.1); Sodium 133 mmol/L (137-145); Total Bilirubin 0.2 mg/dL (0.2-1.3); Total Protein 6.6 g/dL (6.3-8.2)
--- NOTE | 2019-04-08 19:35 | ED ---
URI HPI - General Chief Complaint: Upper Respiratory Infection Stated Complaint: cough,chills Time Seen by Provider: 04/08/19 18:16 Source: patient Mode of arrival: ambulatory Limitations: no limitations - History of Present Illness Initial Comments: 28yo female who is currently 37 weeks who has been exposed and once a be presenting for chills cough coughing so hard she has posttussis emesis area patient states the past 1-2 days she has had cough chills and has coughed so hard she vomits. Patient denies any spontaneous vomiting denies diarrhea. Patient denies abdominal pain vaginal bleeding patient denies any chest pain or shortness of breath. Patient states that the only time she has any difficulty breathing as when she has a coughing spell. Patient denies hemoptysis or leg swelling. Patient denies any other complaints denies dysuria urgency frequency hematuria or flank pain. Upon arrival patient appears well signs of acute di stress obvious upper respiratory symptoms. - Related Data Home Medications Medication Instructions Recorded Confirmed Multivitamins, Thera [Multivitamin 1 tab PO DAILY 02/22/18 02/07/19 (formulary)] Levothyroxine Sodium [Levoxyl] 100 mcg PO DAILY 01/25/19 02/07/19 Previous Rx's Medication Instructions Recorded Cephalexin [Keflex] 500 mg PO Q12HR 5 Days #10 cap 04/08/19 Oseltamivir [Tamiflu] 75 mg PO Q12HR 5 Days #10 cap 04/08/19 Allergies Allergy/AdvReac Type Severity Reaction Status Date / Time No Known Allergies Allergy Verified 02/07/19 19:52 Review of Systems ROS Statement: Those systems with pertinent positive or pertinent negative responses have been documented in the HPI. ROS Other: All systems not noted in ROS Statement are negative. Past Medical History Past Medical History: Thyroid Disorder Additional Past Medical History / Comment(s): anemia History of Any Multi-Drug Resistant Organisms: None Reported Past Surgical History: Hernia Repair Past Anesthesia/Blood Transfusion Reactions: No Reported Reaction Past Psychological History: Anxiety, Depression, Panic Disorder Smoking Status: Never smoker - Past Family History Father Family Medical History: Coronary Artery Disease (CAD) General Exam - General Exam Comments Initial Comments: General: The patient is awake and alert, in no distress, and does not appear acutely ill. Eye: +3 mm pupils are equal, round and reactive to light, extra-ocular movements are intact. No nystagmus. There is normal conjunctiva bilaterally. No signs of icterus. No photophobia Ears, nose, mouth and throat: There are moist mucous membranes and no oral lesions. Oropharynx was not erythematous there is no tonsillar enlargement exudates or lesions. Uvula midline. Tympanic membranes are not erythematous or is no effusions bulging or retraction. No tenderness to palpation of the ma stoid. No anterior cervical lymphadenopathy. Rhinorrhea, clear and bilateral nares. No tripoding, no drooling. Neck: The neck is supple, there is no tenderness or JVD. No nuchal rigidity Cardiovascular: There is a regular rate and rhythm. No murmur, rub or gallop is appreciated. Respiratory: Lungs are clear to auscultation, respirations are non-labored, breath sounds are equal. No wheezes, stridor, rales, or rhonchi. No retractions or abdominal breathing. Gastrointestinal: non-tender abdomen without masses or organomegaly noted. There is no rebound or guarding present. Bowel sounds are unremarkable. Musculoskeletal: Normal ROM, no tenderness. Strength 5/5. Sensation intact. Radial pulses equal bilaterally 2+. Neurological: A&O x 3. CN II-XII intact grossly, There are no obvious motor or sensory deficits. Coordination appears grossly intact. Speech appears normal, no muffling. Skin: Skin is warm and dry and no rashes or lesions are noted. No extremity edema Psychiatric: Cooperative Limitations: no limitations Course Vital Signs 04/08/19 04/08/19 04/08/19 17:32 19:10 19:42 Temperature 99.6 F 101.6 F H 101.3 F H Pulse Rate 113 H 99 102 H Respiratory 18 20 20 Rate Blood Pressure 115/79 123/78 121/78 O2 Sat by Pulse 97 95 100 Oximetry 04/08/19 20:00 Temperature 99.0 F Pulse Rate Respiratory Rate Blood Pressure O2 Sat by Pulse Oximetry Procedures - Olivia Protocol (Time Out) Nurse: Katja Burnette Medical Decision Making - Medical Decision Making 28yo female exposed influenza B currently 37 weeks heart tones 164. Patient febrile. Informed to be positive. Lung sounds clear no signs of respiratory distress. Oxygenating well on room air. Patient shows no signs of hypertension. Patient's urinalysis is contaminated however given the presence of leukocyte esterase we'll treat given status. Patient's O2 sat is otherwise unremarkable for acute process. No increase in LFTs no leukocytosis. Patient does not appear toxic. Patient was provided Tylenol in the emergency department. Patient appears prescribed Keflex in detail. Patient did confirm this 15 affected C of the Tamiflu with the pharmacist prior to administering medication. I discussed Plan with patient as well as importance of return parameters and outpatient follow-up she verbalized understanding. Patient was discharged appearing well after discussed the case in detail by attending provider Dr. Angulo - Lab Data Result diagrams: 04/08/19 19:05 04/08/19 19:05 Lab Results 04/08/19 04/08/19 04/08/19 Range/Units 17:35 18:25 19:05 WBC 5.2 (3.8-10.6) k/uL RBC 4.39 (3.80-5.40) m/uL Hgb 11.4 (11.4-16.0) gm/dL Hct 35.4 (34.0-46.0) % MCV 80.5 (80.0-100.0) fL MCH 26.1 (25.0-35.0) pg MCHC 32.3 (31.0-37.0) g/dL RDW 16.1 H (11.5-15.5) % Plt Count 135 L (150-450) k/uL Neutrophils % 71 % Lymphocytes % 16 % Monocytes % 9 % Eosinophils % 1 % Basophils % 0 % Neutrophils # 3.7 (1.3-7.7) k/uL Lymphocytes # 0.8 L (1.0-4.8) k/uL Monocytes # 0.5 (0-1.0) k/uL Eosinophils # 0.0 (0-0.7) k/uL Basophils # 0.0 (0-0.2) k/uL Anisocytosis Slight Sodium (137-145) mmol/L Potassium (3.5-5.1) mmol/L Chloride (98-107) mmol/L Carbon Dioxide (22-30) mmol/L Anion Gap mmol/L BUN (7-17) mg/dL Creatinine (0.52-1.04) mg/dL Est GFR (CKD-EPI)AfAm (>60 ml/min/1.73 sqM) Est GFR (CKD-EPI)NonAf (>60 ml/min/1.73 sqM) Glucose (74-99) mg/dL Calcium (8.4-10.2) mg/dL Total Bilirubin (0.2-1.3) mg/dL AST (14-36) U/L ALT (4-34) U/L Alkaline Phosphatase (38-126) U/L Total Protein (6.3-8.2) g/dL Albumin (3.5-5.0) g/dL Urine Color Yellow Urine Appearance Cloudy H (Clear) Urine pH 6.5 (5.0-8.0) Ur Specific [place] 1.011 (1.001-1.035) Urine Protein Trace H (Negative) Urine Glucose (UA) Negative (Negative) Urine Ketones Negative (Negative) Urine Blood Negative (Negative) Urine Nitrite Negative (Negative) Urine Bilirubin Negative (Negative) Urine Urobilinogen <2.0 (<2.0) mg/dL Ur Leukocyte Esterase Trace H (Negative) Urine RBC 6 H (0-5) /hpf Urine WBC 15 H (0-5) /hpf Ur Squamous Epith Cells 7 H (0-4) /hpf Amorphous Sediment Rare H (None) /hpf Urine Bacteria Few H (None) /hpf Urine Mucus Rare H (None) /hpf Influenza Type A RNA Not Detected (Not Detectd) Influenza Type B (PCR) Detected H (Not Detectd) 04/08/19 Range/Units 19:05 WBC (3.8-10.6) k/uL RBC (3.80-5.40) m/uL Hgb (11.4-16.0) gm/dL Hct (34.0-46.0) % MCV (80.0-100.0) fL MCH (25.0-35.0) pg MCHC (31.0-37.0) g/dL RDW (11.5-15.5) % Plt Count (150-450) k/uL Neutrophils % % Lymphocytes % % Monocytes % % Eosinophils % % Basophils % % Neutrophils # (1.3-7.7) k/uL Lymphocytes # (1.0-4.8) k/uL Monocytes # (0-1.0) k/uL Eosinophils # (0-0.7) k/uL Basophils # (0-0.2) k/uL Anisocytosis Sodium 133 L (137-145) mmol/L Potassium 3.6 (3.5-5.1) mmol/L Chloride 105 (98-107) mmol/L Carbon Dioxide 20 L (22-30) mmol/L Anion Gap 8 mmol/L BUN 6 L (7-17) mg/dL Creatinine 0.43 L (0.52-1.04) mg/dL Est GFR (CKD-EPI)AfAm >90 (>60 ml/min/1.73 sqM) Est GFR (CKD-EPI)NonAf >90 (>60 ml/min/1.73 sqM) Glucose 84 (74-99) mg/dL Calcium 9.1 (8.4-10.2) mg/dL Total Bilirubin 0.2 (0.2-1.3) mg/dL AST 29 (14-36) U/L ALT 13 (4-34) U/L Alkaline Phosphatase 122 (38-126) U/L Total Protein 6.6 (6.3-8.2) g/dL Albumin 3.4 L (3.5-5.0) g/dL Urine Color Urine Appearance (Clear) Urine pH (5.0-8.0) Ur Specific [place] (1.001-1.035) Urine Protein (Negative) Urine Glucose (UA) (Negative) Urine Ketones (Negative) Urine Blood (Negative) Urine Nitrite (Negative) Urine Bilirubin (Negative) Urine Urobilinogen (<2.0) mg/dL Ur Leukocyte Esterase (Negative) Urine RBC (0-5) /hpf Urine WBC (0-5) /hpf Ur Squamous Epith Cells (0-4) /hpf Amorphous Sediment (None) /hpf Urine Bacteria (None) /hpf Urine Mucus (None) /hpf Influenza Type A RNA (Not Detectd) Influenza Type B (PCR) (Not Detectd) Disposition Clinical Impression: Influenza B, Cough, Chills, Post-tussive emesis Disposition: HOME SELF-CARE Condition: Good Instructions (If sedation given, give patient instructions): Flu Vaccine in Adults (ED) Additional Instructions: Please use medication as discussed. Please follow-up with family doctor in the next 2 days. Please return to emergency room if the symptoms increase or worsen or for any other concerns. Prescriptions: Cephalexin [Keflex] 500 mg PO Q12HR 5 Days #10 cap Oseltamivir [Tamiflu] 75 mg PO Q12HR 5 Days #10 cap Is patient prescribed a controlled substance at d/c from ED?: No Referrals: Joshua French Jr, [Primary Care Provider] - 1-2 days Time of Disposition: 20:06
[2019-04-08 19:42] VITALS: BP 121/78; PULSE 102; RESP 20
[2019-04-08 20:03] VITALS: TEMP 99
[2019-04-08] MEDS ORDERED: CEPHALEXIN 500MG STARTER PACK 4 CAP BTL PO STA (20:06)
== END 2019-04-08 20:19 | disposition home or self-care (01) ==
LOC: EC 17:11
DX: O99.513 Diseases of the respiratory system complicating pregnancy, third trimester (principal); J10.1 Influenza due to other identified influenza virus with other respiratory manifestations; O21.9 Vomiting of pregnancy, unspecified; O99.283 Endocrine, nutritional and metabolic diseases complicating pregnancy, third trimester; E07.9 Disorder of thyroid, unspecified; Z79.890 Hormone replacement therapy; Z3A.37 37 weeks gestation of pregnancy
CPT/HCPCS: 36415; 80053; 81001; 85025; 87502; 96360; 99284

== ENCOUNTER 2019-04-21 02:20 | Outpatient (CLI) | payer OTHER ==
[2019-04-21 06:29] VITALS: BP 116/64; PULSE 78; RESP 16; TEMP 98.1
--- NOTE | 2019-04-30 07:37 | P.MSEPDOC ---
Presenting Problems - Arrival Data Date of Arrival on Unit: 04/21/19 Time of Arrival on Unit: 02:20 Mode of Transport: Ambulatory - Complaint OB-Reason for Admission/Chief Complaint: Possible Onset of Labor Comment: contractions all day, stronger since 0000. Medical History - Information : 5 Para: 2 Term: 2 : 0 Abortions: Spontaneous or Elective: 2 Number of Living Children: 2 - Gestational Age Gestational Age by LUIS ENRIQUE (wks/days): 38 Weeks and 2 Days - History Complications: No Care Review of Systems - Review of Systems Constitutional: No problems Breast: No problems ENT: Cough Cardiovascular: No problems Respiratory: No problems Gastrointestinal: No problems Genitourinary: No problems Musculoskeletal: No problems Neurological: No problems Skin: No problems Vital Signs - Temperature Temperature: 98.1 F Temperature Source: Oral - Pulse Right Sitting Brachial Pulse Rate: 78 Pulse Assessment Method: Automatic Cuff - Respirations Respiratory Rate: 16 O2 Sat by Pulse Oximetry: 98 - Blood Pressure Right Arm Sitting Blood Pressure: 116/64 Blood Pressure Mean: 81 Blood Pressure Source: Automatic Cuff Medical Screen Scoring (Pre) - Cervical Exam Dilation: 1-3 cm = 1 Effacement: More than 50% = 2 Membranes: Intact - Uterine Contractions Frequency: > 5 minutes apart = 1 Duration: > 40 seconds = 2 Intensity: N/A - Maternal Vital Signs Maternal Temperature: N/A Maternal Blood Pressure: N/A Signs of Preeclampsia: N/A - Assessment - Baby A Baseline FHR: 125 Heart Rate - NICHD Category: Category I (Normal) = 0 NST: Reactive - Total Score - Baby A Total Score - Baby A: 6 - Total Score - Baby B Total Score - Baby B: 6 - Total Score - Baby C Total Score - Baby C: 6 - Level of Risk - Baby A Level of Risk - Baby A: Medium (6-9) - Level of Risk - Baby B Level of Risk - Baby B: Medium (6-9) - Level of Risk - Baby C Level of Risk - Baby C: Medium (6-9) Physician Notification (Pre) - Physician Notified Physician Notified Date: 04/21/19 Physician Notified Time: 03:49 New Order Received: Yes - Notification Comment Comment: pt may be discharged home Disposition - Disposition OB Disposition: Discharge to home, Written follow up instructions reviewed Discharge Date: 04/21/19 Discharge Time: 03:55 I agree with the RN Medical Screening Exam: Yes Risk & Benefit of care provided described in d/c instruction: Yes Diagnosis: FALSE LABOR AT OR AFTER 37 COMPLETED WEEKS OF GESTATION
== END 2019-04-21 03:55 | disposition home or self-care (01) ==
LOC: FBPOP 02:20
PROVIDERS: ATTEND Obstetrics & Gynecology
DX: O47.1 False labor at or after 37 completed weeks of gestation (principal); Z3A.38 38 weeks gestation of pregnancy
CPT/HCPCS: 59025; G0463; 99213

== ENCOUNTER 2019-04-22 12:02 | Outpatient (CLI) | payer OTHER ==
[2019-04-22 14:57] VITALS: BP 126/75; PULSE 83; RESP 16; TEMP 98.2
--- NOTE | 2019-05-09 12:13 | P.MSEPDOC ---
Presenting Problems - Arrival Data Date of Arrival on Unit: 04/22/19 Time of Arrival on Unit: 12:02 Mode of Transport: Wheelchair - Complaint OB-Reason for Admission/Chief Complaint: Possible Onset of Labor Medical History - Information : 5 Para: 2 Term: 2 : 0 Abortions: Spontaneous or Elective: 2 Number of Living Children: 2 - Gestational Age Gestational Age by LUIS ENRIQUE (wks/days): 38 Weeks and 6 Days Review of Systems - Review of Systems Constitutional: No problems Breast: No problems ENT: No problems Cardiovascular: No problems Respiratory: No problems Gastrointestinal: No problems Genitourinary: No problems Musculoskeletal: No problems Neurological: No problems Skin: No problems Vital Signs - Temperature Temperature: 98.2 F Temperature Source: Oral - Pulse Right Sitting Pulse Rate: 83 Pulse Assessment Method: Automatic Cuff - Respirations Respiratory Rate: 16 Oxygen Delivery Method: Room Air - Blood Pressure Right Arm Blood Pressure: 126/75 Blood Pressure Mean: 92 Blood Pressure Source: Automatic Cuff Medical Screen Scoring (Pre) - Cervical Exam Dilation: 4-7 cm = 2 Effacement: More than 50% = 2 Membranes: Intact - Uterine Contractions Frequency: > or = 36 weeks =2 Duration: > 40 seconds = 2 Intensity: N/A - Maternal Vital Signs Maternal Temperature: N/A Maternal Blood Pressure: N/A Signs of Preeclampsia: N/A Maternal Respirations: N/A - Maternal Trauma Maternal Trauma: N/A - Assessment - Baby A Baseline FHR: 135 Heart Rate - NICHD Category: Category I (Normal) = 0 NST: Reactive Position: N/A Station: N/A - Total Score - Baby A Total Score - Baby A: 8 - Total Score - Baby B Total Score - Baby B: 8 - Total Score - Baby C Total Score - Baby C: 8 - Level of Risk - Baby A Level of Risk - Baby A: Medium (6-9) - Level of Risk - Baby B Level of Risk - Baby B: Medium (6-9) - Level of Risk - Baby C Level of Risk - Baby C: Medium (6-9) Physician Notification (Pre) - Physician Notified Physician Notified Date: 04/22/19 Physician Notified Time: 14:32 New Order Received: Yes (D/c home) - Notification Comment Comment: IOL scheduled for Monday04/26/19 Disposition - Disposition OB Disposition: Discharge to home Discharge Date: 04/22/19 Discharge Time: 14:37 I agree with the RN Medical Screening Exam: Yes Risk & Benefit of care provided described in d/c instruction: Yes Diagnosis: FALSE LABOR AT OR AFTER 37 COMPLETED WEEKS OF GESTATION
== END 2019-04-22 14:37 | disposition home or self-care (01) ==
LOC: FBPOP 12:02
PROVIDERS: ATTEND Obstetrics & Gynecology
DX: O47.1 False labor at or after 37 completed weeks of gestation (principal); Z3A.38 38 weeks gestation of pregnancy
CPT/HCPCS: 59025; G0463; 99213

== ENCOUNTER 2019-04-23 02:32 | Inpatient (IN) | payer OTHER ==
--- NOTE | 2019-04-23 03:42 | P.HPOB ---
History of Present Illness H&P Date: 04/23/19 Chief Complaint: Contractions This patient is a 28-year-old 5 para 2 female estimated date of confinement 05/03/2019 estimated gestational age 38-4/7 weeks who presents to labor and delivery with complaints of persistent contractions. Patient was here earlier in the day and felt not to be in labor and therefore was sent home continue to have contractions now 8 cm dilated in active labor. care is per Dr. Mcclelland, appears to be uncomplicated. Review of Systems Gastrointestinal: Reports heartburn Genitourinary: Reports Menstruation: Reports amenorrhea Past Medical History Past Medical History: Thyroid Disorder Additional Past Medical History / Comment(s): Patient has a history of hypoth yroidism. History of Any Multi-Drug Resistant Organisms: None Reported Past Surgical History: Hernia Repair Past Anesthesia/Blood Transfusion Reactions: No Reported Reaction Past Psychological History: Anxiety, Depression, Panic Disorder Smoking Status: Never smoker Past Alcohol Use History: None Reported Past Drug Use History: None Reported - Past Family History Father Family Medical History: Coronary Artery Disease (CAD) Medications and Allergies Home Medications Medication Instructions Recorded Confirmed Type Multivitamins, Thera [Multivitamin 1 tab PO DAILY 02/22/18 04/23/19 History (formulary)] Levothyroxine Sodium [Levoxyl] 100 mcg PO DAILY 01/25/19 04/23/19 History Allergies Allergy/AdvReac Type Severity Reaction Status Date / Time No Known Allergies Allergy Verified 04/23/19 03:04 Exam Intake and Output 04/22/19 04/22/19 04/23/19 14:59 22:59 06:59 Other: Weight 113.398 kg - OBG Physical Exam Abdomen: bowel sounds normal, no diffuse tenderness, no bruit present, no guarding noted, no hepatomegaly, no splenomegaly, no mass Vulva: both: normal Vagina: normal moisture, no discharge Cervix: no lesion (Cervix is 8 cm dilated 80% effaced -1 station.), no discharge Uterus: enlarged Results blood work shows she is O positive, RPR is nonreactive, HIV is negative, rubella immune, hepatitis B is nonreactive, Glucola was 108, Assessment and Plan Assessment: This is a 28-year-old 5 para 2 female 38-4/7 weeks gestation admitted to labor and delivery in active labor. Plan is anticipate vaginal delivery. (1) 38 weeks gestation of Current Visit: Yes Status: Acute Code(s): Z3A.38 - 38 WEEKS GESTATION OF SNOMED Code(s): 42521654 (2) Normal labor Current Visit: Yes Status: Acute Code(s): O80 - ENCOUNTER FOR FULL-TERM UNCOMPLICATED DELIVERY; Z37.9 - OUTCOME OF DELIVERY, UNSPECIFIED SNOMED Code(s): 06680819
--- NOTE | 2019-04-23 04:24 | P.PROBDLV ---
Vaginal Delivery Note - . Vaginal Delivery Note: Normal spontaneous vaginal delivery viable female infant Apgars 9 and 9 delivery time 0409 hrs. Please see dictated H&P for intimate details of this patient's admission. Brief summary this is a 28-year-old 5 para 2 female 38-4/7 weeks gestation who is admitted to labor and delivery with complaints of contractions. Patient is 8 cm dilated on admission and has artificial rupture membranes for clear fluid. Patient progresses to complete. She does push the head is felt to be occiput posterior presentation. With one push the head rotates and the infant's head comes to a crown. I support the posterior perineum we have controlled delivery of the infant's head over the intact perineum. Mouth and nares are bulb suctioned. There is a nuchal cord which is very loose but patient spontaneously delivered the rest this infant's body without difficulty. Mouth and nares are bulb suctioned. This is a vigorous viable female Apgars 9 and 9 delivery time was 0409 hrs. After delivery of the infant the infant is laid on mother's abdomen. The cord was allowed to stop pulsating. The umbilical cord was then doubly clamped and cut appears to be trivascular. Placenta is then spontaneously delivered intact. There are no lacerations and no repair. Estimated blood loss is 100 mL. There are no complications. All counts are correct 3.
[2019-04-23] MEDS ORDERED: diphenhydrAMINE 25 MG CAP PO PRN (04:25)
[2019-04-23] MEDS ORDERED: BISACODYL 10 MG SUPP RECTAL PRN (04:25)
[2019-04-23] MEDS ORDERED: LANOLIN CREAM 5 GM TUBE TOPICAL PRN (04:25)
[2019-04-23] MEDS ORDERED: ZOLPIDEM 5 MG TAB PO PRN (04:25)
[2019-04-23] MEDS ORDERED: SIMETHICONE 80 MG CHEWABLE PO PRN (04:25)
[2019-04-23] MEDS ORDERED: HYDROCORTISONE 2.5% RECTAL CREAM 30 GM TUBE RECTAL PRN (04:25)
[2019-04-23] MEDS ORDERED: WITCH HAZEL 1 EACH MED..PAD TOPICAL PRN (04:25)
[2019-04-23] MEDS ORDERED: ACETAMINOPHEN TAB 325 MG TAB PO PRN (04:25)
[2019-04-23] MEDS ORDERED: diphenhydrAMINE 50 MG/ML 1 ML VIAL IVP PRN (04:25)
[2019-04-23] MEDS ORDERED: BENZOCAINE/MENTHOL SPRAY 1 GM/SPRAY AEROSOL TOPICAL PRN (04:25)
[2019-04-23] MEDS ORDERED: OXYTOCIN 20 UNITS/1000 ML NS 1,000 ML IV SCH (04:30)
[2019-04-23] MEDS: IBUPROFEN 600 MG TAB PO PRN ×2 (04:42→20:04)
[2019-04-23 05:16] LABS: Anisocytosis Slight; Basophils % (A) 0 %; Eosinophils # (A) 0.1 k/uL (0-0.7); Eosinophils % (A) 1 %; HCT 38.8 % (34.0-46.0); HGB 12.4 gm/dL (11.4-16.0); Lymphocytes # (A) 3.2 k/uL (1.0-4.8); Lymphocytes % (A) 29 %; MCH 25.7 pg (25.0-35.0); MCV 80.2 fL (80.0-100.0); Mean Platelet Volume 13.4; Monocytes # (A) 0.8 k/uL (0-1.0); Monocytes % (A) 8 %; Neutrophils # (A) 6.3 k/uL (1.3-7.7); Neutrophils % (A) 58 %; Platelet Count 249 k/uL (150-450); RBC 4.84 m/uL (3.80-5.40); RDW 16.3 % (11.5-15.5); WBC 10.8 k/uL (3.8-10.6)
[2019-04-23 05:39] LABS: Large Platelets Present
[2019-04-23] MEDS: SENNOSIDES-DOCUSATE SODIUM 1 EACH TAB PO SCH ×2 (07:55→20:04)
[2019-04-23] MEDS ORDERED: FAMOTIDINE 20 MG/2 ML VIAL IV SCH (09:00)
[2019-04-23] MEDS: FAMOTIDINE 20 MG TAB PO SCH ×2 (10:00→20:06)
[2019-04-24 07:43] VITALS: BP 123/70; PULSE 70; RESP 16; TEMP 97
[2019-04-24] MEDS: SENNOSIDES-DOCUSATE SODIUM 1 EACH TAB PO SCH (08:50)
[2019-04-24] MEDS: FAMOTIDINE 20 MG TAB PO SCH (08:51)
--- NOTE | 2019-04-24 11:54 | P.DS ---
Providers Date of admission: 04/23/19 02:49 Expected date of discharge: 04/24/19 Attending physician: Jayden Mcclelland Primary care physician: Stated None Hospital Course: [place] is doing very well day 1. She is ambulating, voiding and tolerating her diet. She voices no complaints and is requesting discharge to home today. Vital signs are stable and afebrile. Heart regular, lungs clear, extremities without pain. Abdomen soft uterus is firm and lochia is reported be light. Assessment post day 1. Plan discharged home follow up with me in 6 weeks. Discharge instructions otherwise reviewed and all questions are an swered. She is stable for discharge this time. Patient Condition at Discharge: Good Plan - Discharge Summary New Discharge Prescriptions: No Action Multivitamins, Thera [Multivitamin (formulary)] 1 tab PO DAILY Levothyroxine Sodium [Levoxyl] 100 mcg PO DAILY Discharge Medication List Multivitamins, Thera [Multivitamin (formulary)] 1 tab PO DAILY 02/22/18 [History] Levothyroxine Sodium [Levoxyl] 100 mcg PO DAILY 01/25/19 [History] Follow up Appointment(s)/Referral(s): Jayden Mcclelland DO [Doctor of Osteopathic Medicine] - 6 Weeks Activity/Diet/Wound Care/Special Instructions: No heavy lifting, limit stairs and driving, and pelvic rest. If any high temperatures, heavy bleeding, or severe pain call my office
== END 2019-04-24 12:15 | disposition home or self-care (01) | DRG 807 ==
LOC: FBPOP 02:32 → 4FBP 02:49
PROVIDERS: ADMIT Obstetrics & Gynecology; ATTEND Obstetrics & Gynecology
PROC: 10E0XZZ Delivery of Products of Conception, External Approach (ICD-10-PCS; principal; 2019-04-23)
DX: O69.81X0 Labor and delivery complicated by cord around neck, without compression, not applicable or unspecified (principal); Z37.0 Single live birth; O99.284 Endocrine, nutritional and metabolic diseases complicating childbirth; E03.9 Hypothyroidism, unspecified; Z3A.38 38 weeks gestation of pregnancy; Z79.890 Hormone replacement therapy; Z86.59 Personal history of other mental and behavioral disorders; Z82.49 Family history of ischemic heart disease and other diseases of the circulatory system
CPT/HCPCS: 85025

== ENCOUNTER 2021-05-23 12:45 | Outpatient (CLI) | payer OTHER ==
[2021-05-23 13:34] LABS: Appearance,Urine Cloudy (Clear); Bacteria,Urine Occasional /hpf; Bilirubin,Urine Negative (Negative); Blood,Urine Negative (Negative); Color,Urine Yellow; Glucose,Urine (UA) Negative (Negative); Hyaline Casts,Urine 3 /lpf (0-2); Ketones,Urine Negative (Negative); Leukocyte Esterase,Urine Small (Negative); Mucus,Urine Rare /hpf; Nitrite,Urine Negative (Negative); PH, Urine 6.5 (5.0-8.0); Protein,Urine Trace (Negative); RBC,Urine 2 /hpf (0-5); Specific Gravity,Urine 1.015 (1.001-1.035); Squamous Epithelial Cell,Urine 15 /hpf (0-4); Urobilinogen,Urine <2.0 mg/dL (<2.0); WBC,Urine 3 /hpf (0-5)
[2021-05-23 14:20] LABS: Amphetamine Screen,Urine Not Detected (NotDetected); Barbiturate Screen,Urine Not Detected (NotDetected); Benzodiazepines Screen,Urine Not Detected (NotDetected); Cocaine Screen,Urine Not Detected (NotDetected); Methadone Screen, Urine Not Detected (NotDetected); Opiate Screen,Urine Not Detected (NotDetected); Oxycodone Screen, Urine Not Detected (NotDetected); Phencyclidine Screen,Urine Not Detected (NotDetected); Tricyclic Antidepressant,Urine Not Detected (NotDetected); Urn Cannabinoid Scrn Not Detected (NotDetected)
[2021-05-23 14:37] VITALS: BP 126/77; PULSE 91; RESP 16; TEMP 96.5
--- NOTE | 2021-05-24 09:16 | P.MSEPDOC ---
Presenting Problems - Arrival Data Date of Arrival on Unit: 05/23/21 Time of Arrival on Unit: 12:45 Mode of Transport: Ambulatory - Complaint OB-Reason for Admission/Chief Complaint: Possible Onset of Labor, Pain Comment: contractions last night, back pain currently Medical History - Information : 6 Para: 3 Term: 3 : 0 Abortions: Spontaneous or Elective: 2 Number of Living Children: 3 - Gestational Age Gestational Age by LUIS ENRIQUE (wks/days): 37 Weeks and 3 Days - History Complications: Other Comment: limited care Review of Systems - Review of Systems Constitutional: No problems Breast: No problems ENT: No problems Cardiovascular: No problems Respiratory: No problems Gastrointestinal: No problems Genitourinary: No problems Musculoskeletal: No problems Neurological: No problems Skin: No problems Vital Signs - Temperature Temperature: 96.5 F Temperature Source: Temporal Artery Scan - Pulse Right Sitting Pulse Rate: 91 Pulse Assessment Method: Automatic Cuff - Respirations Respiratory Rate: 16 Oxygen Delivery Method: Room Air - Blood Pressure Right Arm Blood Pressure: 126/77 Blood Pressure Mean: 93 Blood Pressure Source: Automatic Cuff Medical Screen Scoring - Cervical Exam Dilation (cm): 1.5 Membranes: Intact - Assessment - Baby A Baseline FHR: 125 Heart Rate - NICHD Category: Category I (Normal) NST: Reactive Physician Notification - Physician Notified Physician Notified Date: 05/23/21 Physician Notified Time: 14:09 Physician: Alex Moffett New Order Received: Yes (d/c home) Maternal Triage Index - Non-Urgent/Priority 4 Non-Urgent Priority 4: Yes Criteria Met for Priority 4: occasional contrctions, vag exam 1.5/50%/high Disposition - Disposition OB Disposition: Discharge to home Discharge Date: 05/23/21 Discharge Time: 14:12 I agree with the RN Medical Screening Exam: Yes Case reviewed; plan agreed upon as documented in EMR&OBIX.: Yes Diagnosis: FALSE LABOR AT OR AFTER 37 COMPLETED WEEKS OF GESTATION
== END 2021-05-23 14:12 | disposition home or self-care (01) ==
LOC: FBPOP 12:45
PROVIDERS: ATTEND Obstetrics & Gynecology
DX: O47.1 False labor at or after 37 completed weeks of gestation (principal); Z3A.37 37 weeks gestation of pregnancy
CPT/HCPCS: 59025; 84112; 81001; 80306; G0463; 99213

== ENCOUNTER 2024-05-02 02:24 | Emergency (ER) | payer OTHER ==
[2024-05-02 02:30] VITALS: TEMP 98.7
[2024-05-02 02:34] LABS: Glucose,Whole Blood 92 mg/dL (70-110)
[2024-05-02 02:51] LABS: Basophils # (A) 0.1 k/uL (0-0.2); Basophils % (A) 1 %; Eosinophils # (A) 0.3 k/uL (0-0.7); Eosinophils % (A) 4 %; HCT 39.9 % (34.0-46.0); HGB 12.7 gm/dL (11.4-16.0); Lymphocytes # (A) 2.6 k/uL (1.0-4.8); Lymphocytes % (A) 32 %; MCH 27.6 pg (25.0-35.0); MCHC 31.7 g/dL (31.0-37.0); MCV 86.9 fL (80.0-100.0); Mean Platelet Volume 9.9; Monocytes # (A) 0.5 k/uL (0-1.0); Monocytes % (A) 6 %; Neutrophils # (A) 4.5 k/uL (1.3-7.7); Neutrophils % (A) 56 %; Platelet Count 217 k/uL (150-450); RBC 4.59 m/uL (3.80-5.40); RDW 13.8 % (11.5-15.5); WBC 8.2 k/uL (3.8-10.6)
[2024-05-02 03:16] LABS: ALT 17 U/L (4-34); African American GFR (CKD) >90 (>60 ml/min/1.73 sqM); Albumin 4.5 g/dL (3.5-5.0); Anion Gap 6 mmol/L; Blood Urea Nitrogen 17 mg/dL (7-17); Calcium 9.8 mg/dL (8.4-10.2); Carbon Dioxide 23 mmol/L (22-30); Chloride 105 mmol/L (98-107); Glucose 96 mg/dL (74-99); Non-African American GFR(CKD) >90 (>60 ml/min/1.73 sqM); Sodium 134 mmol/L (137-145); Total Bilirubin 0.4 mg/dL (0.2-1.3); Total Protein 7.5 g/dL (6.3-8.2)
[2024-05-02 03:23] LABS: Potassium 3.9 mmol/L (3.5-5.1)
[2024-05-02 03:24] LABS: AST 26 U/L (14-36); Alkaline Phosphatase 69 U/L (38-126)
--- NOTE | 2024-05-02 03:46 | ED ---
Extremity Problem HPI - General Chief complaint: Extremity Problem,Nontraumatic Stated complaint: Seizure Time Seen by Provider: 05/02/24 02:36 Source: patient, EMS Mode of arrival: ambulatory Limitations: no limitations - History of Present Illness Initial comments: This patient is a 33-year-old woman who presents to have evaluation related to arm pain. The patient believes that it had come on related to a seizure. The patient states that she does have seizures sometimes at night. The patient did not have any known trauma. She describes it as an aching/cramping feeling. No weakness or numbness distal. MD Complaint: extremity pain -: hour(s) Location: upper extremity History of Same: No -: Yes myalgia Radiation: none Quality: aching Consistency: constant Improves with: nothing Worsens with: nothing - Related Data Home Medications Medication Instructions Recorded Confirmed Levothyroxine Sodium [Synthroid] 150 mcg PO DAILY 09/06/19 05/23/21 Multivitamin [Multivitamins Adult 1 tab PO DAILY 05/23/21 05/23/21 Gummies] Allergies Allergy/AdvReac Type Severity Reaction Status Date / Time No Known Allergies Allergy Verified 05/23/21 12:56 Review of Systems ROS Statement: Those systems with pertinent positive or pertinent negative responses have been documented in the HPI. ROS Other: All systems not noted in ROS Statement are negative. Constitutional: Denies: fever, chills, weakness Respiratory: Denies: cough, dyspnea Cardiovascular: Denies: chest pain, palpitations, edema Gastrointestinal: Denies: abdominal pain, nausea, vomiting Musculoskeletal: Reports: myalgia Skin: Denies: rash Neurological: Denies: headache, weakness, numbness Past Medical History Past Medical History: Thyroid Disorder Additional Past Medical History / Comment(s): Patient has a history of hypothyroidism. History of Any Multi-Drug Resistant Organisms: None Reported Past Surgical History: Hernia Repair Past Anesthesia/Blood Transfusion Reactions: No Reported Reaction Past Psychological History: Anxiety, Depression, Panic Disorder Smoking Status: Vaper Past Alcohol Use History: None Reported Past Drug Use History: None Reported - Past Family History Father Family Medical History: Coronary Artery Disease (CAD) General Exam Limitations: no limitations General appearance: alert, in no apparent distress Head exam: Present: atraumatic, normocephalic Eye exam: Present: normal appearance. Absent: scleral icterus, conjunctival injection Neck exam: Present: normal inspection, full ROM. Absent: tenderness Respiratory exam: Present: normal lung sounds bilaterally. Absent: respiratory distress, wheezes, rales, rhonchi, stridor, accessory muscle use Cardiovascular Exam: Present: regular rate, normal rhythm, normal heart sounds. Absent: systolic murmur, diastolic murmur, rubs, gallop Extremities exam: Present: normal inspection, full ROM, tenderness, normal capillary refill Back exam: Present: normal inspection. Absent: vertebral tenderness Neurological exam: Present: alert. Absent: motor sensory deficit Skin exam: Present: warm, dry, intact, normal color. Absent: rash Course Vital Signs 05/02/24 05/02/24 02:26 04:15 Temperature 98.7 F Pulse Rate 83 70 Respiratory 18 16 Rate Blood Pressure 114/74 110/68 O2 Sat by Pulse 98 99 Oximetry Medical Decision Making - Medical Decision Making Was pt. sent in by a medical professional or institution (, TONYA, MEDICAL PRACTICE ADMINISTRATOR, urgent care, hospital, or long term...) When possible be specific @ -[No] Did you speak to anyone other than the patient for history (EMS, parent, family, police, friend...)? What history was obtained from this source @ -[No] Did you review nursing and triage notes (agree or disagree)? Why? @ -[I reviewed and agree with nursing and triage notes] Were old charts reviewed (outside hosp., previous admission, EMS record, old EKG, old radiological studies, urgent care reports/EKG's, long term records)? Report findings @ -[No old charts were reviewed] Differential Diagnosis (chest pain, altered mental status, abdominal pain women, abdominal pain men, vaginal bleeding, weakness, fever, dyspnea, syncope, headache, dizziness, GI bleed, back pain, seizure, CVA, palpatations, mental he alth, musculoskeletal)? @ -[Differential Musculoskeletal Muscular strain, contusion, ligament sprain, fracture, arthritis, septic arthritis, bursitis, cellulitis, muscle spasm, nerve compression, DVT, arterial occlusion, herpes zoster, electrolyte abnormality, tumor.... This is not meant to be in all inclusive list EKG interpreted by me (3pts min.). @ -[I interpreted as above] X-rays interpreted by me (1pt min.). @ -[None done] CT interpreted by me (1pt min.). @ -[None done] U/S interpreted by me (1pt. min.). @ -[None done] What testing was considered but not performed or refused? (CT, X-rays, U/S, labs)? Why? @ -[None] What meds were considered but not given or refused? Why? @ -[None] Did you discuss the management of the patient with other professionals (professionals i.e. Dr., PA, MEDICAL PRACTICE ADMINISTRATOR, lab, RT, psych nurse, administrator social welfare, restaurant hospitality manager, teacher, loan officer, caser up)? Give summary @ -[No] Was smoking cessation discussed for >3mins.? @ -[No] Was critical care preformed (if so, how long)? @ -[No] Were there social determinants of health that impacted care today? How? (Tani elessness, low income, unemployed, alcoholism, drug addiction, transportation, low edu. Level, literacy, decrease access to med. care, long-term, rehab)? @ -[No] Was there de-escalation of care discussed even if they declined (Discuss DNR or withdrawal of care, Hospice)? DNR status @ -[No] What co-morbidities impacted this encounter? (DM, HTN, Smoking, COPD, CAD, Cancer, CVA, ARF, Chemo, Hep., AIDS, mental health diagnosis, sleep apnea, morbid obesity)? @ -[None] Was patient admitted / discharged? Hospital course, mention meds given and route, prescriptions, significant lab abnormalities, going to OR and other pertinent info. @ -[Patient is 33-year-old woman here to have evaluation of arm pain that she states came on after she suspects she may have had a seizure in her sleep. No known injury. On exam there is mild muscular tenderness. No neurovascular dysfunction. Discussed appropriate further care and follow-up as well as return parameters Undiagnosed new problem with uncertain prognosis? @ -[No] Drug Therapy requiring intensive monitoring for toxicity (Heparin, Nitro, Insulin, Cardizem)? @ -[No] Were any procedures done? @ -[No] Diagnosis/symptom? @ -Acute arm pain Acute, or Chronic, or Acute on Chronic? @ -[Acute Uncomplicated (without systemic symptoms) or Complicated (systemic symptoms)? @ -[Uncomplicated Side effects of treatment? @ -[No] Exacerbation, Progression, or Severe Exacerbation? @ -[No] Poses a threat to life or bodily function? How? (Chest pain, USA, GA, pneumonia, PE, COPD, DKA, ARF, appy, cholecystitis, CVA, Diverticulitis, Homicidal, Suicidal, threat to staff... and all critical care pts) @ -[No] All treatments are based on ideal body weight as in ED triage - Lab Data Result diagrams: 05/02/24 02:35 05/02/24 02:35 Lab Results 05/02/24 05/02/24 05/02/24 Range/Units 02:33 02:35 02:35 WBC 8.2 (3.8-10.6) k/uL RBC 4.59 (3.80-5.40) m/uL Hgb 12.7 (11.4-16.0) gm/dL Hct 39.9 (34.0-46.0) % MCV 86.9 (80.0-100.0) fL MCH 27.6 (25.0-35.0) pg MCHC 31.7 (31.0-37.0) g/dL RDW 13.8 (11.5-15.5) % Plt Count 217 (150-450) k/uL MPV 9.9 Neutrophils % 56 % Lymphocytes % 32 % Monocytes % 6 % Eosinophils % 4 % Basophils % 1 % Neutrophils # 4.5 (1.3-7.7) k/uL Lymphocytes # 2.6 (1.0-4.8) k/uL Monocytes # 0.5 (0-1.0) k/uL Eosinophils # 0.3 (0-0.7) k/uL Basophils # 0.1 (0-0.2) k/uL Sodium 134 L (137-145) mmol/L Potassium 3.9 (3.5-5.1) mmol/L Chloride 105 (98-107) mmol/L Carbon Dioxide 23 (22-30) mmol/L Anion Gap 6 mmol/L BUN 17 (7-17) mg/dL Creatinine 0.58 (0.52-1.04) mg/dL Est GFR (CKD-EPI)AfAm >90 (>60 ml/min/1.73 sqM) Est GFR (CKD-EPI)NonAf >90 (>60 ml/min/1.73 sqM) Glucose 96 (74-99) mg/dL POC Glucose (mg/dL) 92 (70-110) mg/dL POC Glu Doper ID Dania Gonzalez Plasma Lactic Acid Anthony (0.7-2.0) mmol/L Calcium 9.8 (8.4-10.2) mg/dL Magnesium 2.0 (1.6-2.3) mg/dL Total Bilirubin 0.4 (0.2-1.3) mg/dL AST 26 (14-36) U/L ALT 17 (4-34) U/L Alkaline Phosphatase 69 (38-126) U/L Total Protein 7.5 (6.3-8.2) g/dL Albumin 4.5 (3.5-5.0) g/dL / Range/Units 02:35 WBC (3.8-10.6) k/uL RBC (3.80-5.40) m/uL Hgb (11.4-16.0) gm/dL Hct (34.0-46.0) % MCV (80.0-100.0) fL MCH (25.0-35.0) pg MCHC (31.0-37.0) g/dL RDW (11.5-15.5) % Plt Count (150-450) k/uL MPV Neutrophils % % Lymphocytes % % Monocytes % % Eosinophils % % Basophils % % Neutrophils # (1.3-7.7) k/uL Lymphocytes # (1.0-4.8) k/uL Monocytes # (0-1.0) k/uL Eosinophils # (0-0.7) k/uL Basophils # (0-0.2) k/uL Sodium (137-145) mmol/L Potassium (3.5-5.1) mmol/L Chloride (98-107) mmol/L Carbon Dioxide (22-30) mmol/L Anion Gap mmol/L BUN (7-17) mg/dL Creatinine (0.52-1.04) mg/dL Est GFR (CKD-EPI)AfAm (>60 ml/min/1.73 sqM) Est GFR (CKD-EPI)NonAf (>60 ml/min/1.73 sqM) Glucose (74-99) mg/dL POC Glucose (mg/dL) (70-110) mg/dL POC Glu Doper ID Plasma Lactic Acid Anthony 1.6 (0.7-2.0) mmol/L Calcium (8.4-10.2) mg/dL Magnesium (1.6-2.3) mg/dL Total Bilirubin (0.2-1.3) mg/dL AST (14-36) U/L ALT (4-34) U/L Alkaline Phosphatase (38-126) U/L Total Protein (6.3-8.2) g/dL Albumin (3.5-5.0) g/dL - EKG Data -: EKG Interpreted by [facility] EKG shows normal: sinus rhythm, axis (Normal), intervals (Normal), QRS complexes (There is a left anterior fascicular block present), ST-T waves (Normal) Rate: normal (Rate 74 bpm) Disposition Clinical Impression: Arm pain Disposition: HOME SELF-CARE Condition: Good Instructions (If sedation given, give patient instructions): Arm Pain (ED) Is patient prescribed a controlled substance at d/c from ED?: No Referrals: None,Stated [Primary Care Provider] - 1-2 days Sandhya Ulloa MD [REFERRING] - 1-2 days
[2024-05-02 04:16] VITALS: BP 110/68; PULSE 70; RESP 16
== END 2024-05-02 04:16 | disposition home or self-care (01) ==
LOC: EC 02:24
DX: M79.601 Pain in right arm (principal); F17.290 Nicotine dependence, other tobacco product, uncomplicated
CPT/HCPCS: 36415; 80053; 83605; 83735; 85025; 99285

== ENCOUNTER → 2024-08-22 | Outpatient (CLI) | payer OTHER ==
--- NOTE | 2024-08-26 11:23 | MM ---
Reason for Exam: Screening (asymptomatic). Patient History: Menarche at age 13. First Full-Term at age 23. Paternal grandmother had breast cancer, age 72. Paternal aunt had breast cancer, age 44. Tissue Density: The breasts are heterogeneously dense, which may obscure small masses. Findings: Analyzed By CAD. There is no suspicious group of microcalcifications or new suspicious mass in either breast. Benign-appearing calcifications. There is a asymmetric subareolar density in the right breast. Overall Assessment: Incomplete: need additional imaging evaluation, BI-RAD 0 Management: Special View Mammogram of the right breast. . Patient should continue monthly self-breast exams. A clinical breast exam by your physician is recommended on an annual basis. This exam should not preclude additional follow-up of suspicious palpable abnormalities. Note on Flores scores and lifetime risk: 1. A Flores score greater than 3% is considered moderate risk. If this is the case, consider specialist referral to assess eligibility for a risk reducing agent. 2. If overall lifetime risk for the development of breast cancer is 20% or higher, the patient may qualify for future screening with alternating mammogram and breast MRI. [facility], , 08/22/2024 2:47 PM. Electronically signed and approved by: Kentrell Mcgowan M.D. Radiologis
== END | disposition home or self-care (01) ==
LOC: RADMAMWWP 14:16
PROVIDERS: ATTEND Family Medicine
DX: Z12.31 Encounter for screening mammogram for malignant neoplasm of breast (principal); R92.333 Mammographic heterogeneous density, bilateral breasts; R92.1 Mammographic calcification found on diagnostic imaging of breast; Z80.3 Family history of malignant neoplasm of breast
CPT/HCPCS: 77067

== ENCOUNTER → 2024-08-28 | Outpatient (CLI) | payer OTHER ==
--- NOTE | 2024-08-28 08:35 | MM ---
Reason for Exam: Additional evaluation requested from abnormal screening. Last screening mammogram was performed less than 1 month ago. Patient History: Menarche at age 13. First Full-Term at age 23. Paternal grandmother had breast cancer, age 72. Paternal aunt had breast cancer, age 44. Tissue Density: Right: There are scattered areas of fibroglandular density. Findings: Analyzed By CAD. Nodular asymmetry right breast persists on CC view measuring 6 mm. Overall Assessment: Incomplete: need additional imaging evaluation, BI-RAD 0 Management: Diagnostic Breast Ultrasound of the right breast. Results were given to the patient verbally at the time of exam. Patient should continue monthly self-breast exams. A clinical breast exam by your physician is recommended on an annual basis. This exam should not preclude additional follow-up of suspicious palpable abnormalities. Note on Flores scores and lifetime risk: 1. A Flores score greater than 3% is considered moderate risk. If this is the case, consider specialist referral to assess eligibility for a risk reducing agent. 2. If overall lifetime risk for the development of breast cancer is 20% or higher, the patient may qualify for future screening with alternating mammogram and breast MRI. [facility], , 08/28/2024 8:31 AM. Electronically signed and approved by: Joe Haynes DO
--- NOTE | 2024-08-28 11:33 | USB ---
Reason for Exam: Additional evaluation requested from abnormal screening. Patient History: Menarche at age 13. First Full-Term at age 23. Paternal grandmother had breast cancer, age 72. Paternal aunt had breast cancer, age 44. Technique: Method: Targeted. Prior Study Comparison: 08/22/2024 Bilateral MG screening mammo w [facility], [facility]. Findings: The retroareolar of the right breast was scanned. Technique utilized:US breast workup limited RT Image; Ultrasound imaging of: Area of concern, retroareolar region. No evidence for organizing fluid collection or mass. Overall Assessment: Negative, BI-RAD 1 Management: Screening Mammogram of both breasts in 1 year. A clinical breast exam by your physician is recommended on an annual basis and results should be correlated with mammographic findings. This exam should not preclude additional follow-up of suspicious palpable abnormalities. Results were given to the patient verbally at the time of exam. [facility], , 08/28/2024 10:40 AM. Electronically signed and approved by: Joe Haynes DO
== END | disposition home or self-care (01) ==
LOC: RADMAMWWP 08:05
PROVIDERS: ATTEND Family Medicine
DX: R92.8 Other abnormal and inconclusive findings on diagnostic imaging of breast (principal); R92.321 Mammographic fibroglandular density, right breast; Z80.3 Family history of malignant neoplasm of breast
CPT/HCPCS: 77065; 76642; G0279; 77061